=== PATIENT | female | born 1935 | race Caucasian/White ===

== ENCOUNTER 2019-05-30 08:52 | Emergency (ER) | payer MEDICARE, BC, MEDICAID ==
--- NOTE | 2019-05-30 09:10 | EDM.PDOC ---
ED HPI GENERAL MEDICAL PROBLEM - General Chief Complaint: Neuro Symptoms/Deficits Stated Complaint: [facility] Time Seen by Provider: 05/30/19 08:57 Source of Information: Reports: EMS, Skilled Nursing Records. Denies: Patient History Limitations: Reports: Altered Mental Status (She does not wish to communicate much with me. 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 Does obey commands.) - History of Present Illness INITIAL COMMENTS - FREE TEXT/NARRATIVE: 83-year-old female presents to the ED from [facility] where apparently she suffered a syncopal episode while seated in the shower this morning. Ct Technician would comment that there was any seizure-like activity as she is at high risk of seizures since she has had previous CVA. She has not yet had breakfast. Is unclear if she is diabetic. Humped over to 1 side but did not fall and hurt her head neck or any other body parts. Staff was in attendance. Since then she has been moaning and groaning a lot but not speaking a great deal. She has had a previous CVA with a complete right-sided hemiparesis. Is around in a wheelchair but does not walk to my knowledge. He denies headache at this time and there is been no history of nausea or vomiting. Patient has a history of coronary disease with stents. Is unclear if she is ever suffered a seizure event. She is on Coumadin at this time. After speaking with staff at [facility] it appears that she was wheeling herself down the hallway to the shower at just before 0730 hrs. this morning. Therefore we are using her last known well time at 0730 hrs. He is on Coumadin. She would also be a candidate for thrombolytic therapy if her INR was less than 1.7. Onset: Today Onset Date: 05/30/19 Onset Time: 08:05 Duration: Minutes: Location: Reports: Generalized (Loss of consciousness without any reported tonic -clonic or seizure activity. En route clear for how long she was unresponsive for. She slumped over to 1 side while seated in the shower. She did not fall or get hurt in any other way.) Quality: Reports: Other (Sudden loss of consciousness. This occurred while seated suggesting neurogenic or cardiac event) Severity: Moderate Improves with: Reports: Other (Fairly improved spontaneously but over what timeframe is unclear) Worsens with: Reports: None Context: Reports: Other (Apparently had a syncopal event without seizure activity while in the shower this morning slumping over to 1 side and becoming unresponsive for an unknown period of time at this time. Mental cognition and movement returned spontaneously without any postictal symptoms.). Denies: Activity, Exercise, Lifting, Sick Contact, Trauma Associated Symptoms: Reports: Confusion, Malaise. 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 (see below) (She has not received any medications.) - Related Data Allergies Allergy/AdvReac Type Severity Reaction Status Date / Time No Known Allergies Allergy Verified 06/06/15 16:32 Home Meds: Home Meds Aspirin [Ecotrin] 81 mg PO DAILY 03/28/16 [History] Sertraline [Zoloft] 75 mg PO DAILY 03/28/16 [History] Docusate Sodium [Colace] 100 mg PO BID 05/30/19 [History] Magnesium Hydroxide [Milk of Magnesia] 30 ml PO TID 05/30/19 [History] Pantoprazole [ProTONIX] 40 mg PO DAILY 05/30/19 [History] amLODIPine [Norvasc] 5 mg PO DAILY 05/30/19 [History] atorvaSTATin [Lipitor] 10 mg PO DAILY 05/30/19 [History] levETIRAcetam [Keppra] 125 mg PO BID 05/30/19 [History] risperiDONE 0.5 mg PO BID 05/30/19 [History] Past Medical History Cardiovascular History: Reports: Stents Respiratory History: Reports: None Gastrointestinal History: Reports: None Genitourinary History: Reports: None 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 Endocrine/Metabolic History: Reports: None Other Hematologic History: unable to access. Other Immunologic History: unable to access. Oncologic (Cancer) History: Reports: None Dermatologic History: Reports: None - Infectious Disease History Infectious Disease History: Reports: None Other Infectious Disease History: unable to access. - Past Surgical History Other HEENT Surgeries/Procedures: unable to assess Other Cardiovascular Surgeries/Procedures: unable to access. Other Respiratory Surgeries/Procedures: unable to access. Other GI Surgeries/Procedures: unable to access. Female Surgical History: Reports: None Other Female Surgeries/Procedures: unable to assess. Other Endocrine Surgeries/Procedures: unable to access. Other Neurological Surgeries/Procedures: unable to access. Other Musculoskeletal Surgeries/Procedures:: unable to access. Pt fell May 2015, hospitalized in [place] for 1 1/2 weeks then went to the [facility] home Other Oncologic Surgeries/Procedures: unable to access. Social & Family History - Family History Family Medical History: Noncontributory - Caffeine Use Caffeine Use: Reports: Coffee - Living Situation & Occupation Living situation: Reports: , Extended Care Facility Occupation: Retired ED ROS GENERAL - Review of Systems Review Of Systems: Unable To Obtain (Patient was not verbal with me at all although she did open her eyes make eye contact and did not respond to commands. ) Reason Not Obtained: Initially patient was nonverbal with me but was with nurses and t Constitutional: Reports: Malaise, Weakness. Denies: Fever, Chills HEENT: Reports: Glasses Respiratory: Denies: Shortness of Breath, Wheezing, Pleuritic Chest Pain Cardiovascular: Reports: Blood Pressure Problem. Denies: Chest Pain, Claudication (And runs very low. In fact nurses are having a hard time getting a blood pressure.), Lightheadedness, Orthopnea Endocrine: Reports: Fatigue GI/Abdominal: Reports: Constipation : Reports: Incontinence Musculoskeletal: Reports: Other (Pain in both her knees and hips and low back and neck at times) Skin: Reports: No Symptoms Neurological: Reports: Other (Right-sided hemiparesis from previous CVA and brain bleed.) Psychiatric: Reports: No Symptoms Hematologic/Lymphatic: Reports: No Symptoms Immunologic: Reports: No Symptoms ED EXAM, NEURO - Physical Exam Exam: See Below Exam Limited By: Altered Mental Status General Appearance: Lethargic, Mild Distress, Other (However she has a strong radial pulse indicating that her systolic is greater than 90.) Eye Exam: Bilateral Eye: Normal Inspection (There is no scleral icterus or blepharal pallor.) Throat/Mouth: Normal Lips, Normal Teeth, Other (Tongue is mildly dry.) Head Exam: Atraumatic, Normocephalic, Other (No outward signs of any head or facial trauma.) Neck: Normal Inspection, Other (Obvious tenderness on palpation of the lateral spine.). No: Supple, Carotid Bruit Respiratory/Chest: Respiratory Distress, Decreased Breath Sounds (Shallow respirations.). No: Lungs Clear ( Is diminished to the lower 50% lung benedict bilaterally.), Normal Breath Sounds Cardiovascular: Regular Rate, Rhythm, No Edema (Frequent ectopic beats.), No Gallop, No Murmur, No Rub. No: Normal Peripheral Pulses GI/Abdominal: Normal Bowel Sounds, Soft, Non-Tender, No Organomegaly, No Abnormal Bruit, No Mass, Pelvis Stable, Distended (Pineda distended and tympany to percussion upper abdomen suggestive of some aerophagia.) Neurological: CN II-XII Intact, Babinski (Going on the right side.), Other (He can lift her right leg off the gurney just for a second or 2. She could lift her left leg off the gurney for 3 seconds and that was all. She has good import/export administrator strength and good motor power and tone in the biceps distribution and or flexor strength on the left side. On the right side she is very weak with very little import/export administrator strength. ). No: Oriented x 3 DTR: 0: Achilles (R), Achilles (L), 1+: Patella (R), Patella (L), 2+: Bicep (R) , Bicep (L) Back Exam: Other (Mild kyphosis thoracic spine) Extremities: Non-Tender, Other (Evidence of osteoarthritic changes both knees very limited internal and external rotation of both hips suggestive of osteoarthritic change.). No: Normal Range of Motion, Normal Capillary Refill Psychiatric: Other Skin Exam: Warm (Not able to assess as the patient really did not speak with me. ), Dry, Intact, Normal Color, No Rash EKG INTERPRETATION EKG Date: 05/30/19 Time: 09:19 Rhythm: NSR Rate (Beats/Min): 70 [place]: LAD-Left [place] Deviation (67 degrees) P-Wave: Present QRS: LBBB (Left anterior fascicular block pattern) ST-T: Other (Delayed R wave progression with late transition. T wave flattening V2 and V3 nonspecific finding) EKG Interpretation Comments: Abnormal ECG Course - Vital Signs Last Recorded V/S: Last Vital Signs Temp 36.4 C 03/18/20 09:00 Pulse 65 05/30/19 09:00 Resp 16 05/30/19 09:00 BP Pulse Ox 85 L 05/30/19 09:00 - Orders/Labs/Meds Orders: Active Orders 24 hr Category Date Time Status Blood Glucose Check, Bedside [] ONETIME Care 05/30/19 09:09 Active EKG Documentation Completion [RC] STAT Care 05/30/19 09:08 Active Oxygen Therapy [RC] ASDIRECTED Care 05/30/19 09:09 Active URINALYSIS W/MICROSCOPIC [UA W/MICROSCOPIC] [URIN] Stat Lab 05/30/19 09:09 Ordered Dextrose 5%-0.9% NaCl [Dextrose 5%-Normal Saline] 1,000 Med 05/30/19 09:15 Active ml IV ASDIRECTED Medication Orders Dextrose/Sodium Chloride (Dextrose 5%-Normal Saline) 1,000 mls @ 999 mls/hr IV ASDIRECTED FIORELLA Last Admin: 05/30/19 10:22 Dose: 999 mls/hr Labs: Laboratory Tests 05/30/19 05/30/19 05/30/19 Range/Units 09:06 09:15 09:15 WBC 9.29 (3.98-10.04) K/mm3 RBC 3.88 L (3.98-5.22) M/mm3 Hgb 10.1 L D (11.2-15.7) gm/dl Hct 34.4 (34.1-44.9) % MCV 88.7 D (79.4-94.8) fl MCH 26.0 (25.6-32.2) pg MCHC 29.4 L (32.2-35.5) g/dl RDW Std Deviation 53.6 H (36.4-46.3) fL Plt Count 261 (182-369) K/mm3 MPV 11.9 (9.4-12.3) fl Neut % (Auto) 67.2 (34.0-71.1) % Lymph % (Auto) 18.5 L (19.3-51.7) % Lynn % (Auto) 8.6 (4.7-12.5) % Eos % (Auto) 5.2 (0.7-5.8) Baso % (Auto) 0.3 (0.1-1.2) % Neut # (Auto) 6.24 H (1.56-6.13) K/mm3 Lymph # (Auto) 1.72 (1.18-3.74) K/mm3 Lynn # (Auto) 0.80 H (0.24-0.36) K/mm3 Eos # (Auto) 0.48 H (0.04-0.36) K/mm3 Baso # (Auto) 0.03 (0.01-0.08) K/mm3 Manual Slide Review Abnormal smear PT 10.3 (9.7-12.0) SECONDS INR 0.94 APTT 22 (22-31) SECONDS Sodium (136-145) mEq/L Potassium (3.5-5.1) mEq/L Chloride (98-107) mEq/L Carbon Dioxide (21-32) mEq/L Anion Gap (5-15) BUN (7-18) mg/dL Creatinine (0.55-1.02) mg/dL Est Cr Clr Drug Dosing mL/min Estimated GFR (MDRD) (>60) mL/min BUN/Creatinine Ratio (14-18) Glucose (83-115) mg/dL POC Glucose 94 (83-110) mg/dL Calcium (8.5-10.1) mg/dL Magnesium (1.8-2.4) mg/dl Total Bilirubin (0.2-1.0) mg/dL AST (15-37) U/L ALT (14-59) U/L Alkaline Phosphatase (46-116) U/L CK-MB (CK-2) (0-3.6) ng/ml Troponin I (0.00-0.056) ng/mL NT-Pro-B Natriuret Pep (0-450) pg/mL Total Protein (6.4-8.2) g/dl Albumin (3.4-5.0) g/dl Globulin gm/dL Albumin/Globulin Ratio (1-2) 05/30/19 05/30/19 Range/Units 09:15 09:15 WBC (3.98-10.04) K/mm3 RBC (3.98-5.22) M/mm3 Hgb (11.2-15.7) gm/dl Hct (34.1-44.9) % MCV (79.4-94.8) fl MCH (25.6-32.2) pg MCHC (32.2-35.5) g/dl RDW Std Deviation (36.4-46.3) fL Plt Count (182-369) K/mm3 MPV (9.4-12.3) fl Neut % (Auto) (34.0-71.1) % Lymph % (Auto) (19.3-51.7) % Lynn % (Auto) (4.7-12.5) % Eos % (Auto) (0.7-5.8) Baso % (Auto) (0.1-1.2) % Neut # (Auto) (1.56-6.13) K/mm3 Lymph # (Auto) (1.18-3.74) K/mm3 Lynn # (Auto) (0.24-0.36) K/mm3 Eos # (Auto) (0.04-0.36) K/mm3 Baso # (Auto) (0.01-0.08) K/mm3 Manual Slide Review PT (9.7-12.0) SECONDS INR APTT (22-31) SECONDS Sodium 143 (136-145) mEq/L Potassium 4.8 (3.5-5.1) mEq/L Chloride 107 (98-107) mEq/L Carbon Dioxide 29 (21-32) mEq/L Anion Gap 11.8 (5-15) BUN 15 (7-18) mg/dL Creatinine 0.9 (0.55-1.02) mg/dL Est Cr Clr Drug Dosing 43.56 mL/min Estimated GFR (MDRD) 60 (>60) mL/min BUN/Creatinine Ratio 16.7 (14-18) Glucose 103 (83-115) mg/dL POC Glucose (83-110) mg/dL Calcium 8.8 (8.5-10.1) mg/dL Magnesium 2.2 (1.8-2.4) mg/dl Total Bilirubin 0.2 (0.2-1.0) mg/dL AST 15 (15-37) U/L ALT 12 L (14-59) U/L Alkaline Phosphatase 77 (46-116) U/L CK-MB (CK-2) 0.5 (0-3.6) ng/ml Troponin I < 0.017 (0.00-0.056) ng/mL NT-Pro-B Natriuret Pep 92 (0-450) pg/mL Total Protein 7.4 (6.4-8.2) g/dl Albumin 3.1 L (3.4-5.0) g/dl Globulin 4.3 gm/dL Albumin/Globulin Ratio 0.7 L (1-2) Meds: Medications Generic Name Dose Route Start Last Admin Trade Name Freq PRN Reason Stop Dose Admin Dextrose/Sodium Chloride 1,000 mls @ 999 mls/hr 05/30/19 09:15 05/30/19 10:22 Dextrose 5%-Normal Saline IV 999 mls/hr ASDIRECTED FIORELLA Administration - Radiology Interpretation Free Text/Narrative:: 3-year-old female presents to the ED from [facility] as a stroke alert. Apparently she was in the shower this morning seated and then had a spell where she lost consciousness with her head leaning to one side against the shower side. She did not fall and there was no significant injuries to the head or neck or body parts. Staff was in attendance. There is no report of any seizure-like activity. She has had a previous CVA over a year and a half ago with right-sided hemiparesis. She does not walk on her own volition. When I seen her she is nonverbal although apparently she did communicate with the paramedics in route as well as nursing initially. She did obey commands by opening her mouth showing me her tongue and import/export administrator strengths and movement of her upper extremities. Granddaughter has arrived now and indicates that her speech is not normally this garbled suggesting that she has had a second CVA. Is unclear exactly when the symptoms may have occurred. CT head will be ordered. Of note the patient is on Coumadin. - Re-Assessments/Exams Free Text/Narrative Re-Assessment/Exam: 05/30/19 10:15: CT of the brain reveals ventricles along with the basal cisterns and sulci over the convexities to be utterly prominent. Several lacunar infarcts which appear old are seen within both basal ganglia. Small old white matter infarct is also noted on the right side. Small old infarct is also noted within the left side of the guille. No other abnormal parenchymal densities are identified. No evidence of intracranial hemorrhage. No midline shift or mass-effect is seen. Bone window settings are were reviewed which show no acute paranasal sinus findings. Straight done portably reveals slight atelectasis within the left lung base but lungs are otherwise clear. Heart size and mediastinum are within normal limits for the patient's age. Bone structures of course are very osteopenic. 05/30/19 10:32 Count is 9.29 with 67% neutrophils on the auto differential. Hemoglobin is slightly low at 10.1 with hematocrit of 34.4. Platelet count is 261,000. The slide shows slight hypochromia. PT is 10.3 with an INR of 0.94 and PTT is pending. Shows a sodium of 143 potassium of 4.8 chloride 107 with a bicarb of 29. Anion gap is 11.8 BUN is 15. Creatinine is 0.9 GFR is greater than 60. Glucose 103 with a bedside glucose of 94. Calcium was 8.8 with a magnesium of 2.2. Liver function is normal CK-MB is 0.5 with a troponin I of less than 0.017. BNP is 92 total protein is 7.4 albumin fraction 3.1. 05/30/19 11:40 declining further information from the [facility] and they indicate that they did not see any evidence of seizure-like activity. They did indicate that it seemed to take a while for her to come around suggesting the possibility of a complex partial seizure. However when I spoke with the granddaughter she indicated that her speech is unchanged now and the patient agrees that her speech is unchanged from her usual as well as the weakness in her right upper extremity. The staff at the [facility] said there was a definite change when they seen her with inability to comprehend speech and to speak. 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 However the grand daughter that I spoke with states that they did not want her back on any anticoagulants as she had a major brain bleed 4 years ago while on medication. Therefore the treatment will remain the same baby aspirin daily. Just going to check that she can swallow adequately before we decide to let her go back to the [facility] 05/30/19 11:42 Nurses report she had absolutely no trouble swallowing water. She will therefore be returned to [facility] with no changes made to her medications at this point in time. This discussed with her granddaughter whom is in attendance. She has understanding that there is a higher risk of TIA in the future. However patient and family members do not want her on any medications that may make her bleed easier since she has had a previous brain bleed while on Plavix. For stay on her baby aspirin daily Departure - Departure Time of Disposition: 11:43 Disposition: DC/Tfer to Assisted Care [facility] Condition: Fair Clinical Impression: TIA (transient ischemic attack) - Discharge Information *PRESCRIPTION DRUG MONITORING PROGRAM REVIEWED*: Not Applicable *COPY OF PRESCRIPTION DRUG MONITORING REPORT IN PATIENT JIGAR: Not Applicable Instructions: Transient Ischemic Attack, [id number] Referrals: Cisco Scott MD [Primary Care Provider] - Forms: ED Department Discharge Additional Instructions: Evaluation in the emergency room today in regards to a loss of consciousness spell that occurred while seated over at [facility]. The information that we received indicated that you suddenly lost consciousness and tilted over to the side without any fall from the shower chair. It is unclear how long this unresponsive spell lasted. When you came around it was appreciated that your speech seem to be definitely altered being very dysarthric and initially not able to answer at all. It is impossible to tell if there was increased weakness on the side as you have had previous stroke on that side. When she reached the ED your speech as you felt was as normal as it usually is and your granddaughter felt initially that perhaps it was a little weaker and altered but over time came back to normal. Alert was called and CT scan of the brain was carried out showing no intracranial bleeding or mass- effect or evidence of a new stroke. There was no signs of any heart abnormalities or arrhythmias that would account for sudden drop in blood pressure. Pressure runs quite low however and sometimes as we get older we can see a sudden drop in blood pressure due to change in blood pressure due to opening and closing of the blood vessels. At any rate it was felt that you may well have suffered another small stroke or transient ischemic attack. At this time we do not recommend any changes in treatment other than the medications you are already taking. There is a higher risk for recurrent similar type event. You are also at risk of atypical seizure disorder due to previous stroke and therefore it is very important that if any further spells occur that you are observed closely by staff members to make sure that there is no seizure- like activity which of course there is a treatment for. Sepsis Event Note - Focused Exam Vital Signs: Vital Signs Temp Pulse Resp Pulse Ox 05/30/19 09:00 36.4 C 65 16 85 L Date Exam was Performed: 05/30/19 Time Exam was Performed: 14:00 - My Orders Last 24 Hours: My Active Orders 05/30/19 09:08 EKG Documentation Completion [RC] STAT 05/30/19 09:09 Blood Glucose Check, Bedside [RC] ONETIME Oxygen Therapy [RC] ASDIRECTED URINALYSIS W/MICROSCOPIC [UA W/MICROSCOPIC] [URIN] Stat 05/30/19 09:15 Dextrose 5%-0.9% NaCl [Dextrose 5%-Normal Saline] 1,000 ml IV ASDIRECTED - Assessment/Plan Last 24 Hours: My Active Orders 05/30/19 09:08 EKG Documentation Completion [RC] STAT 05/30/19 09:09 Blood Glucose Check, Bedside [RC] ONETIME Oxygen Therapy [RC] ASDIRECTED URINALYSIS W/MICROSCOPIC [UA W/MICROSCOPIC] [URIN] Stat 05/30/19 09:15 Dextrose 5%-0.9% NaCl [Dextrose 5%-Normal Saline] 1,000 ml IV ASDIRECTED
[2019-05-30 09:11] VITALS: PULSE 65
[2019-05-30] MEDS ORDERED: Dextrose 5%-0.9% NaCl 1,000 ML IV SCH (09:15)
--- NOTE | 2019-05-30 09:59 | CR ---
Chest: Portable view of the chest was obtained. Comparison: Prior chest x-ray of 03/28/16. Slight atelectasis is seen within the left lung base. Lungs otherwise are clear. Heart size and mediastinum are within normal limits for the patient's age. Bony structures are osteopenic. Impression: 1. Slight atelectasis within the left lung base. 2. Nothing acute is otherwise seen on portable chest x-ray. Diagnostic code #2 This report was dictated in MDT
--- NOTE | 2019-05-30 10:12 | CT ---
Head CT Technique: Multiple axial sections through the brain were obtained. Intravenous contrast was not utilized. Comparison: Previous head CT study of 05/10/16. Findings: Ventricles along with basal cisterns and sulci over the convexities are moderately prominent. Several lacunar infarcts which appear old are seen within the basal ganglia. Small old white matter infarct is also noted on the right side. Small old infarct is noted within the left side of the guille No other abnormal parenchymal densities are seen. No evidence of intracranial hemorrhage. No midline shift or mass effect is seen. Bone window settings were reviewed which show no acute paranasal sinus findings within the visualized sinuses. Mastoid sinuses are clear. No acute calvarial abnormality is seen. Mild atherosclerotic change is seen within the carotid siphon. Impression: 1. Senescent change as noted above. 2. No acute intracranial abnormality is identified. Diagnostic code #2 This report was dictated in MDT
== END 2019-05-30 13:15 ==
LOC: JD.ED 08:52
DX: G45.9 Transient cerebral ischemic attack, unspecified (principal); F32.9 Major depressive disorder, single episode, unspecified; Z79.82 Long term (current) use of aspirin; Z79.899 Other long term (current) drug therapy; R06.02 Shortness of breath
CPT/HCPCS: 36415; 70450; 71045; 80053; 82553; 82962; 83735; 83880; 84484; 85025; 85610; 85730; 93005; 96360; 99285; J7042; 93010

== ENCOUNTER 2019-10-09 14:12 | Emergency (ER) | payer MEDICARE, BC, MEDICAID, OTHER ==
[2019-10-09 14:34] VITALS: BP 127/69; PULSE 78
--- NOTE | 2019-10-09 15:07 | EDM.PDOC ---
ED HPI GENERAL MEDICAL PROBLEM - General Chief Complaint: Respiratory Problem Stated Complaint: [facility] Time Seen by Provider: 10/09/19 14:32 Source of Information: Reports: EMS Notes Reviewed (with NH report), RN Notes Reviewed History Limitations: Reports: Altered Mental Status (unsure if patient has dementia, but all she does when I look at her or try to ask question is laugh) - History of Present Illness INITIAL COMMENTS - FREE TEXT/NARRATIVE: Patient is an 84-year-old female who presents to the ED via [facility], from [facility] for a possible COVID-19 exposure. Per report from [facility] staff, the patient was exposed to a staff member with COVID-19 on October 05. Staff states that the patient started complaining of a sore throat on October 06, and they have noted that she has started to have low O2 sats today, at time of triage they are 85% on room air, she is not known to had any fever, they deny cough, however when I am examining her, she does have a dry intermittent cough. Patient appears to be in a mild respiratory distress pattern, she is belly breathing, and is eliciting upper airway wheezing due to forceful expiration. Patient does wear oxygen at the [facility] at around 2 L nasal cannula, we did apply this at initial exam, and her O2 sats are 95 to 98% with the 2 L. Patient does not provide much for history, when I ask her questions, or if she looks at me, all she does is laugh at me. - Related Data Allergies Allergy/AdvReac Type Severity Reaction Status Date / Time No Known Allergies Allergy Verified 10/09/19 14:34 Home Meds: Home Meds Aspirin [Ecotrin] 81 mg PO DAILY 03/28/16 [History] Sertraline [Zoloft] 75 mg PO DAILY 03/28/16 [History] Docusate Sodium [Colace] 100 mg PO BID 05/30/19 [History] Magnesium Hydroxide [Milk of Magnesia] 30 ml PO TID 05/30/19 [History] Pantoprazole [ProTONIX] 40 mg PO DAILY 05/30/19 [History] amLODIPine [Norvasc] 5 mg PO DAILY 05/30/19 [History] atorvaSTATin [Lipitor] 10 mg PO DAILY 05/30/19 [History] levETIRAcetam [Keppra] 125 mg PO BID 05/30/19 [History] risperiDONE 0.5 mg PO BID 05/30/19 [History] Past Medical History HEENT History: Reports: Impaired Vision Cardiovascular History: Reports: Stents Respiratory History: Reports: None Gastrointestinal History: Reports: None Genitourinary History: Reports: None 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 Endocrine/Metabolic History: Reports: None Other Hematologic History: unable to access. Other Immunologic History: unable to access. Oncologic (Cancer) History: Reports: None Dermatologic History: Reports: None - Infectious Disease History Infectious Disease History: Reports: None Other Infectious Disease History: unable to access. - Past Surgical History Other HEENT Surgeries/Procedures: unable to assess Other Cardiovascular Surgeries/Procedures: unable to access. Other Respiratory Surgeries/Procedures: unable to access. Other GI Surgeries/Procedures: unable to access. Female Surgical History: Reports: None Other Female Surgeries/Procedures: unable to assess. Other Endocrine Surgeries/Procedures: unable to access. Other Neurological Surgeries/Procedures: unable to access. Other Musculoskeletal Surgeries/Procedures:: unable to access. Pt fell May 2015, hospitalized in [place] for 1 1/2 weeks then went to the [facility] home Other Oncologic Surgeries/Procedures: unable to access. Social & Family History - Family History Family Medical History: Noncontributory - Tobacco Use Smoking Status *Q: Former Smoker Used Tobacco, but Quit: Yes Month/Year Tobacco Last Used: "long time ago" - Caffeine Use Caffeine Use: Reports: Coffee - Living Situation & Occupation Living situation: Reports: , Extended Care Facility Occupation: Retired ED ROS GENERAL - Review of Systems Review Of Systems: See Below Constitutional: Denies: Fever HEENT: Denies: Throat Pain Respiratory: Reports: Wheezing (forced expiratory wheezing), Cough (dry, intermittent). Denies: Shortness of Breath Cardiovascular: Denies: Chest Pain GI/Abdominal: Denies: Abdominal Pain, Diarrhea, Nausea, Vomiting ED EXAM, GENERAL - Physical Exam Exam: See Below Exam Limited By: Altered Mental Status (hx/ of dementia with behavioral disturbance, follows commands, but does just giggle at most everything I request.) General Appearance: Alert, WD/WN, Mild Distress (pt does have forced expiratory wheezing with belly breathing) Eye Exam: Bilateral Eye: EOMI, Normal Inspection, PERRL Throat/Mouth: Normal Inspection, Normal Lips, Normal Teeth, Normal Gums, Normal Oropharynx, Normal Voice, No Airway Compromise Head: Atraumatic, Normocephalic Neck: Normal Inspection Respiratory/Chest: Chest Non-Tender, Decreased Breath Sounds (bilaterally), Rales (mostly in bilateral bases), Wheezing (forced expiratory upper airway wheezing), Splinting (pt does exhibit prolonged expiratory with abdmonial splinting) Cardiovascular: Normal Peripheral Pulses, Regular Rate, Rhythm, No Murmur Extremities: Normal Inspection, Normal Capillary Refill Neurological: Alert Psychiatric: Normal Affect, Normal Mood Skin Exam: Warm, Dry, Intact, Normal Color, No Rash Course - Vital Signs Last Recorded V/S: Last Vital Signs Temp 97.5 F 10/09/19 14:28 Pulse 78 10/09/19 14:28 Resp 16 10/09/19 14:28 BP 127/69 10/09/19 14:28 Pulse Ox 85 L 10/09/19 14:28 - Orders/Labs/Meds Orders: Active Orders 24 hr Category Date Time Status CORONAVIRUS COVID-19 PCR PHL Routine Lab 10/09/19 14:40 Ordered Labs: Laboratory Tests 10/09/19 10/09/19 10/09/19 Range/Units 15:04 15:04 15:04 WBC 7.19 (3.98-10.04) K/mm3 RBC 3.91 L (3.98-5.22) M/mm3 Hgb 9.5 L (11.2-15.7) gm/dl Hct 32.9 L (34.1-44.9) % MCV 84.1 D (79.4-94.8) fl MCH 24.3 L (25.6-32.2) pg MCHC 28.9 L (32.2-35.5) g/dl RDW Std Deviation 55.8 H (36.4-46.3) fL Plt Count 250 (182-369) K/mm3 MPV 12.1 (9.4-12.3) fl Neut % (Auto) 56.6 (34.0-71.1) % Lymph % (Auto) 26.8 (19.3-51.7) % Bradley % (Auto) 10.2 (4.7-12.5) % Eos % (Auto) 6.0 H (0.7-5.8) Baso % (Auto) 0.3 (0.1-1.2) % Neut # (Auto) 4.07 (1.56-6.13) K/mm3 Lymph # (Auto) 1.93 (1.18-3.74) K/mm3 Bradley # (Auto) 0.73 H (0.24-0.36) K/mm3 Eos # (Auto) 0.43 H (0.04-0.36) K/mm3 Baso # (Auto) 0.02 (0.01-0.08) K/mm3 Manual Slide Review Abnormal smear Sodium 140 (136-145) mEq/L Potassium 4.0 (3.5-5.1) mEq/L Chloride 104 (98-107) mEq/L Carbon Dioxide 29 (21-32) mEq/L Anion Gap 11.0 (5-15) BUN 12 (7-18) mg/dL Creatinine 0.9 (0.55-1.02) mg/dL Est Cr Clr Drug Dosing 36.14 mL/min Estimated GFR (MDRD) 60 (>60) mL/min BUN/Creatinine Ratio 13.3 L (14-18) Glucose 108 (83-115) mg/dL Calcium 8.1 L (8.5-10.1) mg/dL Ferritin 12 (8-252) ng/ml Total Bilirubin 0.2 (0.2-1.0) mg/dL AST 13 L (15-37) U/L ALT 14 (14-59) U/L Alkaline Phosphatase 76 (46-116) U/L C-Reactive Protein 0.6 (<1.0) mg/dL Total Protein 6.9 (6.4-8.2) g/dl Albumin 2.9 L (3.4-5.0) g/dl Globulin 4.0 gm/dL Albumin/Globulin Ratio 0.7 L (1-2) - Re-Assessments/Exams Free Text/Narrative Re-Assessment/Exam: 10/09/19 15:13 Patient presents to the ED from the [facility] for the evaluation of her possible COVID exposure, and low O2 sats. On initial exam, patient is exhibiting some slight respiratory distress with abdominal splinting, prolonged expiratory phase with expiratory wheezing in the upper airways. I did contact the return to [facility] for prior history they state that she does have a history of dementia with behavioral disturbances, so they state that she will likely just stare at you and then giggle. Nursing staff noted that she was slightly more pale than she normally is earlier today, and O2 sats were 84 to 86% on room air, they did place O2 at 2 L, got up to about 94%, and nursing staff states that she complained of a sore throat on the , and then she was complaining about being lightheaded/dizzy today. 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 Nursing staff states that the perceived respiratory distress is somewhat new, and she also did appreciate some coarse lung sounds at the [facility] earlier today. 10/09/19 16:08 Chest x-ray shows no sign of a viral pneumonia or other COVID-19 type pattern. The patient CBC CMP and CRP are essentially unremarkable. Ferritin is still pending at this time. Patient does have oxygen at the [facility], we will likely have the patient go back to the [facility], and isolate until the state coronavirus test can be resulted. 10/09/19 16:37 Ferritin is also within normal limits. We will discharge home with general recommendations, and have them quarantine her until the COVID results can come back from the state. Departure - Departure Time of Disposition: 16:38 Disposition: Home, Self-Care 01 Condition: Good Clinical Impression: Hypoxia, Viral URI with cough - Discharge Information *PRESCRIPTION DRUG MONITORING PROGRAM REVIEWED*: No *COPY OF PRESCRIPTION DRUG MONITORING REPORT IN PATIENT JIGAR: No Instructions: Viral Respiratory Infection, Ivkg-Ur-Wday Forms: ED Department Discharge Additional Instructions: You were evaluated in the ER today regarding your low oxygen levels, and upper respiratory symptoms. Work-up in the ER today consisted of basic labs, chest x-ray and a state lab COVID screen. Laboratory evaluation demonstrated no focal abnormalities, your hemoglobin was mildly low, but this is not uncommon for you and it is not at a level that you would need a blood transfusion at this time. Chest x-ray was not concerning for pneumonia or COVID-19 at this time. You did have a COVID-19 swab taken, this will be sent to the state for evaluation, this can take up to 3-5 business days to result, you will be called and made notified of the results as we get them, regardless if they are positive or negative. As you live in a [facility], you should self quarantine until you get these results. You may use oxygen as needed for lower oxygen levels as needed, as previously prescribed by your primary care provider. Please return to the ER at any time however if your symptoms should change or worsen. Sepsis Event Note (ED) - Evaluation Sepsis Screening Result: No Definite Risk - Focused Exam Vital Signs: Vital Signs Temp Pulse Resp BP Pulse Ox 10/09/19 14:28 97.5 F 78 16 127/69 85 L - My Orders Last 24 Hours: My Active Orders 10/09/19 14:40 CORONAVIRUS COVID-19 PCR PHL Routine - Assessment/Plan Last 24 Hours: My Active Orders 10/09/19 14:40 CORONAVIRUS COVID-19 PCR PHL Routine
--- NOTE | 2019-10-09 15:40 | CR ---
Chest: 2 views of the chest were obtained. Comparison: Prior chest x-ray of 05/30/19. Heart is slightly enlarged. Tortuous thoracic aorta is seen. Lungs are clear with no acute parenchymal change. Bony structures are osteopenic. Old healed distal left humeral fracture is noted. Scattered compression deformities are noted within the spine which are most likely old. Slight scoliosis is seen. Impression: 1. Findings as noted above. 2. Nothing acute is appreciated on 2 view chest x-ray. Diagnostic code #2 This report was dictated in MDT
== END 2019-10-09 17:55 | disposition home or self-care (01) ==
LOC: JD.ED 14:12
DX: J06.9 Acute upper respiratory infection, unspecified (principal); R09.02 Hypoxemia; F32.9 Major depressive disorder, single episode, unspecified; Z79.82 Long term (current) use of aspirin; Z79.899 Other long term (current) drug therapy; Z87.891 Personal history of nicotine dependence; Z20.828 Contact with and (suspected) exposure to other viral communicable diseases
CPT/HCPCS: 36415; 71046; 80053; 82728; 85025; 86140; 99285; U0002; 99282

== ENCOUNTER 2019-10-30 11:06 | Inpatient (IN) | payer MEDICARE, BC, MEDICAID ==
[2019-10-30] MEDS ORDERED: Sodium Chloride 0.9% 10 ML Syringe FLUSH PRN (11:50)
[2019-10-30] MEDS ORDERED: Ondansetron 4 MG/2 ML SDV IVPUSH ONE (11:50)
[2019-10-30] MEDS ORDERED: Sodium Chloride 0.9% 1,000 ML IV SCH (12:00)
--- NOTE | 2019-10-30 12:37 | EDM.PDOC ---
ED HPI GENERAL MEDICAL PROBLEM - General Chief Complaint: General Stated Complaint: SENT FROM [place] Time Seen by Provider: 10/30/19 11:12 Source of Information: Reports: Patient, Provider History Limitations: Reports: No Limitations - History of Present Illness INITIAL COMMENTS - FREE TEXT/NARRATIVE: The patient presents from Dr Scott's office for decreased appetite and r ectal bleeding. She is a resident of the [facility]. She was sent to Dr Scott's office for evaluation. Her Hgb did drop from 10.2 yesterday to 9 today. She is on a baby aspirin but no other blood thinners. She denies any pain such as headache, chest pain or abdominal pain. She is in the halfway for a CVA, head bleed and dementia. Onset: Gradual Duration: Day(s): Severity: Moderate Improves with: Reports: None Worsens with: Reports: None Associated Symptoms: Reports: No Other Symptoms - Related Data Allergies Allergy/AdvReac Type Severity Reaction Status Date / Time No Known Allergies Allergy Verified 10/30/19 11:25 Home Meds: Home Meds Aspirin [Ecotrin] 81 mg PO DAILY 03/28/16 [History] Sertraline [Zoloft] 75 mg PO DAILY 03/28/16 [History] Docusate Sodium [Colace] 100 mg PO BID 05/30/19 [History] Magnesium Hydroxide [Milk of Magnesia] 30 ml PO TID 05/30/19 [History] Pantoprazole [ProTONIX] 40 mg PO DAILY 05/30/19 [History] amLODIPine [Norvasc] 5 mg PO DAILY 05/30/19 [History] atorvaSTATin [Lipitor] 10 mg PO DAILY 05/30/19 [History] levETIRAcetam [Keppra] 125 mg PO BID 05/30/19 [History] risperiDONE 0.5 mg PO BID 05/30/19 [History] Past Medical History HEENT History: Reports: Impaired Vision Cardiovascular History: Reports: Stents Respiratory History: Reports: None Gastrointestinal History: Reports: None Genitourinary History: Reports: None 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 Endocrine/Metabolic History: Reports: None Other Hematologic History: unable to access. Other Immunologic History: unable to access. Oncologic (Cancer) History: Reports: None Dermatologic History: Reports: None - Infectious Disease History Infectious Disease History: Reports: None Other Infectious Disease History: unable to access. - Past Surgical History Other HEENT Surgeries/Procedures: unable to assess Other Cardiovascular Surgeries/Procedures: unable to access. Other Respiratory Surgeries/Procedures: unable to access. Other GI Surgeries/Procedures: unable to access. Female Surgical History: Reports: None Other Female Surgeries/Procedures: unable to assess. Other Endocrine Surgeries/Procedures: unable to access. Other Neurological Surgeries/Procedures: unable to access. Other Musculoskeletal Surgeries/Procedures:: unable to access. Pt fell May 2015, hospitalized in [place] for 1 1/2 weeks then went to the [facility] home Other Oncologic Surgeries/Procedures: unable to access. Social & Family History - Family History Family Medical History: Noncontributory - Tobacco Use Smoking Status *Q: Never Smoker Second Hand Smoke Exposure: No - Caffeine Use Caffeine Use: Reports: None - Recreational Drug Use Recreational Drug Use: No - Living Situation & Occupation Living situation: Reports: , Extended Care Facility Occupation: Retired ED ROS GENERAL - Review of Systems Review Of Systems: See Below Constitutional: Reports: No Symptoms HEENT: Reports: No Symptoms Respiratory: Reports: No Symptoms Cardiovascular: Reports: No Symptoms Endocrine: Reports: No Symptoms GI/Abdominal: Reports: Bloody Stool. Denies: Abdominal Pain, Nausea, Vomiting : Reports: No Symptoms Musculoskeletal: Reports: No Symptoms ED EXAM, GENERAL - Physical Exam Exam: See Below Exam Limited By: No Limitations General Appearance: Alert, No Apparent Distress Ears: Normal External Exam Nose: Normal Inspection Head: Atraumatic, Normocephalic Neck: Normal Inspection Respiratory/Chest: No Respiratory Distress, Lungs Clear, Normal Breath Sounds Cardiovascular: Regular Rate, Rhythm, No Edema, No Murmur GI/Abdominal: Soft, Non-Tender, No Organomegaly, No Mass Rectal (Female) Exam: Bloody Stool, Heme + Stool Back Exam: Normal Inspection Neurological: Alert Course - Vital Signs Last Recorded V/S: Last Vital Signs Temp 97.6 F 10/30/19 11:21 Pulse 85 10/30/19 11:21 Resp 20 10/30/19 11:21 BP 132/107 H 10/30/19 11:21 Pulse Ox 92 L 10/30/19 11:21 - Orders/Labs/Meds Orders: Active Orders 24 hr Category Date Time Status Peripheral IV Care [RC] . DIRECTED Care 10/30/19 11:51 Active CORONAVIRUS COVID-19 RAPID [MOLEC] Stat Lab 10/30/19 14:18 Ordered Sodium Chloride 0.9% [Normal Saline] 1,000 ml Med 10/30/19 12:00 Active IV ASDIRECTED Sodium Chloride 0.9% [Normal Saline] 100 ml Med 10/30/19 13:00 Active IV ASDIRECTED Sodium Chloride 0.9% [Saline Flush] Med 10/30/19 11:50 Active 10 ml FLUSH ASDIRECTED PRN ED Antiemetic Medication Reflex [OM.PC] Stat Oth 10/30/19 11:50 Ordered Peripheral IV Insertion Adult [OM.PC] Stat Oth 10/30/19 11:50 Ordered Medication Orders Sodium Chloride (Normal Saline) 1,000 mls @ 125 mls/hr IV ASDIRECTED FIORELLA Last Admin: 10/30/19 12:10 Dose: 125 mls/hr Documented by: RAHAT Sodium Chloride (Normal Saline) 100 mls @ 60 mls/hr IV ASDIRECTED FIORELLA Last Admin: 10/30/19 13:16 Dose: 60 mls/hr Documented by: JEANNE Sodium Chloride (Saline Flush) 10 ml FLUSH ASDIRECTED PRN PRN Reason: Keep Vein Open Last Admin: 10/30/19 12:10 Dose: 10 ml Documented by: RAHAT Labs: Laboratory Tests 10/30/19 10/30/19 10/30/19 Range/Units 12:05 12:05 12:05 WBC 7.75 (3.98-10.04) K/mm3 RBC 3.69 L (3.98-5.22) M/mm3 Hgb 8.9 L (11.2-15.7) gm/dl Hct 30.8 L (34.1-44.9) % MCV 83.5 (79.4-94.8) fl MCH 24.1 L (25.6-32.2) pg MCHC 28.9 L (32.2-35.5) g/dl RDW Std Deviation 55.6 H (36.4-46.3) fL Plt Count 285 (182-369) K/mm3 MPV 11.9 (9.4-12.3) fl Neut % (Auto) 56.2 (34.0-71.1) % Lymph % (Auto) 28.6 (19.3-51.7) % [place] % (Auto) 9.5 (4.7-12.5) % Eos % (Auto) 5.2 (0.7-5.8) Baso % (Auto) 0.4 (0.1-1.2) % Neut # (Auto) 4.35 (1.56-6.13) K/mm3 Lymph # (Auto) 2.22 (1.18-3.74) K/mm3 [place] # (Auto) 0.74 H (0.24-0.36) K/mm3 Eos # (Auto) 0.40 H (0.04-0.36) K/mm3 Baso # (Auto) 0.03 (0.01-0.08) K/mm3 Manual Slide Review Abnormal smear PT 10.6 (9.7-12.0) SECONDS INR 0.99 APTT 21 L (22-31) SECONDS Sodium 138 (136-145) mEq/L Potassium 4.3 (3.5-5.1) mEq/L Chloride 101 (98-107) mEq/L Carbon Dioxide 29 (21-32) mEq/L Anion Gap 12.3 (5-15) BUN 12 (7-18) mg/dL Creatinine 0.9 (0.55-1.02) mg/dL Est Cr Clr Drug Dosing 36.97 mL/min Estimated GFR (MDRD) 60 (>60) mL/min BUN/Creatinine Ratio 13.3 L (14-18) Glucose 97 (83-115) mg/dL Calcium 8.8 (8.5-10.1) mg/dL Total Bilirubin 0.3 (0.2-1.0) mg/dL AST 14 L (15-37) U/L ALT 14 (14-59) U/L Alkaline Phosphatase 69 (46-116) U/L Total Protein 7.3 (6.4-8.2) g/dl Albumin 3.2 L (3.4-5.0) g/dl Globulin 4.1 gm/dL Albumin/Globulin Ratio 0.8 L (1-2) Lipase 106 (73-393) U/L Meds: Medications Generic Name Dose Route Start Last Admin Trade Name Freq PRN Reason Stop Dose Admin Sodium Chloride 1,000 mls @ 125 mls/hr 10/30/19 12:00 10/30/19 12:10 Normal Saline IV 125 mls/hr ASDIRECTED FIORELLA Administration Sodium Chloride 100 mls @ 60 mls/hr 10/30/19 13:00 10/30/19 13:16 Normal Saline IV 60 mls/hr ASDIRECTED FIORELLA Administration Sodium Chloride 10 ml 10/30/19 11:50 10/30/19 12:10 Saline Flush FLUSH 10 ml ASDIRECTED PRN Administration Keep Vein Open Discontinued Medications Generic Name Dose Route Start Last Admin Trade Name Freq PRN Reason Stop Dose Admin Barium Sulfate 450 ml 10/30/19 12:50 10/30/19 13:17 Volumen 0.1% Susp PO 10/30/19 12:51 900 ml PREPRO ONE Administration Iopamidol 100 ml 10/30/19 12:50 10/30/19 13:16 Isovue-370 (76%) IVPUSH 10/30/19 12:51 100 ml ONETIME ONE Administration Ondansetron HCl 4 mg 10/30/19 11:50 10/30/19 12:10 Zofran IVPUSH 10/30/19 11:51 4 mg ONETIME ONE Administration Sodium Chloride 10 ml 10/30/19 12:50 10/30/19 13:16 Saline Flush FLUSH 10/30/19 12:51 10 ml ONETIME ONE Administration - Re-Assessments/Exams Free Text/Narrative Re-Assessment/Exam: 10/30/19 12:40 I ordered labs, IV NS, zofran 4mg IV and CT of her abdomen and pelvis. 10/30/19 14:38 Her Hgb is low at 8.9. PT is normal. PTT is elevated at 21. Her CMP is negative. Her lipase is normal. 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 Atherosclerotic change is seen within the aortoiliac vessels. No etiology is seen for patient's GI bleed as noted in the clinical history. Other findings believed to be incidental as noted above. The cause of the bleed is not clear. I feel she needs to be admitted. I called Dr Clark and she agreed to the admission. Departure - Departure Time of Disposition: 14:45 Disposition: Admitted As Inpatient 65 Condition: Fair Clinical Impression: GI bleed Qualifiers: GI bleed type/associated pathology: unspecified gastrointestinal hemorrhage type Qualified Code(s): K92.2 - Gastrointestinal hemorrhage, unspecified Anemia Qualifiers: Anemia type: other cause Other causes of anemia: other cause, not classified Qualified Code(s): D64.89 - Other specified anemias - Discharge Information Referrals: Percy Dunham MD [Primary Care Provider] - Forms: ED Department Discharge Sepsis Event Note (ED) - Evaluation Sepsis Screening Result: No Definite Risk - Focused Exam Vital Signs: Vital Signs Temp Pulse Resp BP Pulse Ox 10/30/19 11:21 97.6 F 85 20 132/107 H 92 L - My Orders Last 24 Hours: My Active Orders 10/30/19 11:50 Sodium Chloride 0.9% [Saline Flush] 10 ml FLUSH ASDIRECTED PRN ED Antiemetic Medication Reflex [OM.PC] Stat Peripheral IV Insertion Adult [OM.PC] Stat 10/30/19 11:51 Peripheral IV Care [RC] . DIRECTED 10/30/19 12:00 Sodium Chloride 0.9% [Normal Saline] 1,000 ml IV ASDIRECTED 10/30/19 13:00 Sodium Chloride 0.9% [Normal Saline] 100 ml IV ASDIRECTED 10/30/19 14:18 CORONAVIRUS COVID-19 RAPID [MOLEC] Stat - Assessment/Plan Last 24 Hours: My Active Orders 10/30/19 11:50 Sodium Chloride 0.9% [Saline Flush] 10 ml FLUSH ASDIRECTED PRN ED Antiemetic Medication Reflex [OM.PC] Stat Peripheral IV Insertion Adult [OM.PC] Stat 10/30/19 11:51 Peripheral IV Care [RC] . DIRECTED 10/30/19 12:00 Sodium Chloride 0.9% [Normal Saline] 1,000 ml IV ASDIRECTED 10/30/19 13:00 Sodium Chloride 0.9% [Normal Saline] 100 ml IV ASDIRECTED 10/30/19 14:18 CORONAVIRUS COVID-19 RAPID [MOLEC] Stat
[2019-10-30] MEDS ORDERED: Iopamidol 755 Mg/ML 100 ML Bottle IVPUSH ONE (12:50)
[2019-10-30] MEDS ORDERED: Barium Sulfate 0.1% Susp 450 ML Bottle PO ONE (12:50)
[2019-10-30] MEDS ORDERED: Sodium Chloride 0.9% 10 ML Syringe FLUSH ONE (12:50)
[2019-10-30] MEDS ORDERED: Sodium Chloride 0.9% 100 ML IV SCH (13:00)
--- NOTE | 2019-10-30 13:57 | CT ---
CT abdomen and pelvis Technique: Multiple axial sections were obtained from above the dome of the diaphragm inferiorly through the pubic symphysis. Intravenous contrast was given during the arterial phase. Delayed imaging was obtained. Negative oral contrast was utilized. Reconstructed coronal and sagittal images were obtained. 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 Diffuse atherosclerotic change is seen. Mid aorta has an AP dimension of 2.3 cm and distal aorta has an AP dimension of 2.2 cm. Ectasia is noted of both common iliac arteries. Diffuse atherosclerotic change is seen within the aortoiliac arteries. Celiac axis and superior mesenteric arteries are patent. No discrete stenosis within the renal arteries are seen. Visualized lung bases shows atelectasis. Liver contains no focal abnormality. Spleen size is normal. Kidneys show symmetric contrast enhancement without hydronephrosis or mass. Delayed images shows contrast throughout the ureters into the bladder. Pancreas shows no discrete abnormality. No retroperitoneal adenopathy or mesenteric abnormalities are seen. Appendix is seen which is normal. No pelvic mass or adenopathy is seen. No bowel dilatation is appreciated. Diverticuli are seen within the sigmoid colon without findings of diverticulitis. Slight increased stool within the rectum is noted. Bone window settings were reviewed which shows endplate concavities which appear to be old. Scattered degenerative change and osteopenia are seen. Impression: 1. 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 2. Atherosclerotic change is seen within the aortoiliac vessels. 3. No etiology is seen for patient's GI bleed as noted in the clinical history. 4. Other findings believed to be incidental as noted above. Diagnostic code #2 This report was dictated in MDT
--- NOTE | 2019-10-30 14:57 | PCM.HP.2 ---
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 Sent to PCP's office from alf. Hb checked yesterday at 10.2 and repeat today of 9. Denies any abdominal pain, diarrhea, constipation, nausea, vomiting, chest pain, palpitations, headaches, shortness of breath. - Related Data Allergies/Adverse Reactions: Allergies Allergy/AdvReac Type Severity Reaction Status Date / Time No Known Allergies Allergy Verified 10/30/19 11:25 Home Medications: Home Meds Aspirin [Ecotrin] 81 mg PO DAILY 03/28/16 [History] Sertraline [Zoloft] 75 mg PO DAILY 03/28/16 [History] Docusate Sodium [Colace] 100 mg PO BID 05/30/19 [History] Magnesium Hydroxide [Milk of Magnesia] 30 ml PO TID 05/30/19 [History] Pantoprazole [ProTONIX] 40 mg PO DAILY 05/30/19 [History] amLODIPine [Norvasc] 5 mg PO DAILY 05/30/19 [History] atorvaSTATin [Lipitor] 10 mg PO DAILY 05/30/19 [History] levETIRAcetam [Keppra] 125 mg PO BID 05/30/19 [History] ARIPiprazole [Abilify] 2 mg PO BEDTIME 10/30/19 [History] Acetaminophen [Tylenol] 650 mg PO Q4H PRN 10/30/19 [History] Benztropine [Cogentin] 0.5 mg PO BID 10/30/19 [History] Calcium Carbonate/Vitamin D3 [Calcium 600 + Vit D 400 Softgl] 1 tab PO DAILY 10/30/19 [History] Past Medical History HEENT History: Reports: Impaired Vision Cardiovascular History: Reports: Stents Respiratory History: Reports: None Gastrointestinal History: Reports: None Genitourinary History: Reports: None Other OB/BYN History: unable to access. 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 Endocrine/Metabolic History: Reports: None Other Hematologic History: unable to access. Other Immunologic History: unable to access. Oncologic (Cancer) History: Reports: None Dermatologic History: Reports: None - Infectious Disease History Infectious Disease History: Reports: None Other Infectious Disease History: unable to access. - Past Surgical History Other HEENT Surgeries/Procedures: unable to assess Other Cardiovascular Surgeries/Procedures: unable to access. Other Respiratory Surgeries/Procedures: unable to access. Other GI Surgeries/Procedures: unable to access. Female Surgical History: Reports: None Other Female Surgeries/Procedures: unable to assess. Other Endocrine Surgeries/Procedures: unable to access. Other Neurological Surgeries/Procedures: unable to access. Other Musculoskeletal Surgeries/Procedures:: unable to access. Pt fell May 2015, hospitalized in [place] for 1 1/2 weeks then went to the [facility] home Other Oncologic Surgeries/Procedures: unable to access. Social & Family History - Family History Family Medical History: Noncontributory - Tobacco Use Smoking Status *Q: Never Smoker Second Hand Smoke Exposure: No - Caffeine Use Caffeine Use: Reports: None - Recreational Drug Use Recreational Drug Use: No - Living Situation & Occupation Living situation: Reports: , Extended Care Facility Occupation: Retired H&P Review of Systems - Review of Systems: Review Of Systems: Unable To Obtain Reason Not Obtained: Patient refusing to answer Exam - Exam Exam: See Below - Vital Signs Vital Signs: Last Vital Signs Temp 97.6 F 10/30/19 11:21 Pulse 85 10/30/19 11:21 Resp 20 10/30/19 11:21 BP 132/107 H 10/30/19 11:21 Pulse Ox 92 L 10/30/19 11:21 Weight: 61.235 kg - Exam General: Alert, Cooperative, Mild Distress HEENT: Conjunctiva Clear, Mucosa Moist & [place], Pupils Equal, Pupils Reactive Neck: Supple, Trachea Midline Lungs: Clear to Auscultation, Normal Respiratory Effort, Decreased Breath Sounds. No: Crackles, Rales, Rhonchi, Rub, Stridor, Wheezing Cardiovascular: Regular Rate, Regular Rhythm. No: Systolic Murmur, Diastolic Murmur, Rubs, Gallop/S3, Gallop/S4 GI/Abdominal Exam: Normal Bowel Sounds, Soft, Non-Tender, Distended. No: Guarding, Rigid, Rebound Extremities: Normal Inspection, Non-Tender, Pedal Edema. No: Normal Range of Motion Peripheral Pulses: 1+: Radial (L), Radial (R) Skin: Warm - Patient Data Result Diagrams: 10/30/19 12:05 10/30/19 12:05 Sepsis Event Note - Evaluation Sepsis Screening Result: No Definite Risk - Problem List (1) Anemia due to blood loss, acute SNOMED Code(s): 970082362 ICD Code: D62 - ACUTE POSTHEMORRHAGIC ANEMIA Status: Acute Current Visit: Yes (2) Dyslipidemia SNOMED Code(s): 390411924 ICD Code: E78.5 - HYPERLIPIDEMIA, UNSPECIFIED Status: Acute Current Visit: Yes (3) Dysphagia SNOMED Code(s): 92321899, 309094827 ICD Code: R13.10 - DYSPHAGIA, UNSPECIFIED Status: Acute Current Visit: Yes (4) Flaccid hemiplegia affecting dominant side SNOMED Code(s): 252240408 ICD Code: G81.00 - FLACCID HEMIPLEGIA AFFECTING UNSPECIFIED SIDE Status: Acute Current Visit: Yes (5) Lower gastrointestinal bleed SNOMED Code(s): 07629536 ICD Code: K92.2 - GASTROINTESTINAL HEMORRHAGE, UNSPECIFIED Status: Acute Current Visit: Yes (6) Hypertension SNOMED Code(s): 89410991 ICD Code: I10 - ESSENTIAL (PRIMARY) HYPERTENSION Status: Acute Current Visit: Yes (7) History of pulmonary embolism SNOMED Code(s): 704540411 ICD Code: Z86.711 - PERSONAL HISTORY OF PULMONARY EMBOLISM Status: Acute Current Visit: Yes (8) Coronary artery disease SNOMED Code(s): 33711514 ICD Code: I25.10 - ATHSCL HEART DISEASE OF [place] CORONARY ARTERY W/O ANG PCTRS Status: Acute Current Visit: Yes (9) Abdominal aortic aneurysm (AAA) 3.0 cm to 5.0 cm in diameter in female SNOMED Code(s): 146687953 ICD Code: I71.4 - ABDOMINAL AORTIC ANEURYSM, WITHOUT RUPTURE Status: Acute Current Visit: Yes (10) Dementia SNOMED Code(s): 49847168 ICD Code: F03.90 - UNSPECIFIED DEMENTIA WITHOUT BEHAVIORAL DISTURBANCE Status: Acute Current Visit: Yes (11) Hypoalbuminemia SNOMED Code(s): 332848926 ICD Code: E88.09 - OTH DISORDERS OF PLASMA-PROTEIN METABOLISM, NEC Status: Acute Current Visit: Yes (12) Former smoker SNOMED Code(s): 1905028 ICD Code: Z87.891 - PERSONAL HISTORY OF NICOTINE DEPENDENCE Status: Acute Current Visit: Yes Problem List Initiated/Reviewed/Updated: Yes Assessment/Plan Comment:: ASSESSMENT Sent from PCPs office for rectal bleed Hb dropped overnight from 10.2 to 9 Rectal exam in ED with hemorrhoids and tinged with blood Abdominal exam is benign Repeat Hb 8.9 Hemodynamically stable ( BP 132/107, HR 85) CT abdomen did not find any obvious actively bleeding sites - Incidental AAA, 3.5cm in greatest diameter On aspirin daily at home No prior episodes PLAN Anemia due to blood loss, acute Lower gastrointestinal bleed Hemorrhoids - Hb/Hct every 4 hours - Anemia work-up - LR @100 - Golytely for colon prep - Surgery consult Hypertension - Hold home medications - PRN Hydralazine Prior hemorrhagic stroke with residual flaccid hemiplegia affecting dominant side and dysphagia Coronary artery disease Dyslipidemia - Hold aspirin and other home medications Hypoalbuminemia Decreased appetite - Prealbumin level - Vitamin levels - Dietary evaluation and follow-up Dementia - Let me sleep protocol - Hold home medications Abdominal aortic aneurysm (AAA) 3.0 cm to 5.0 cm in diameter in female - Will need follow up as an outpatient PROPHYLAXIS DVT- compression stockings GI- home pantoprazole IV CODE STATUS: DNR/DNI DISPOSITION: Patient will be admitted to medical floor for hemodynamic monitoring and trending of Hb as well as colon prep and surgical consult. SOCIAL: Lives in [facility] Wheelchair bound - Mortality Measure Prognosis:: Poor
[2019-10-30] MEDS ORDERED: Lactated Ringers 1,000 ML IV SCH (15:00)
[2019-10-30] MEDS ORDERED: Ondansetron 4 MG/2 ML SDV IV PRN (15:03)
[2019-10-30] MEDS ORDERED: Polyethylene Glycol/Electrolytes 4,000 ML Bottle PO ONE (17:16)
--- NOTE | 2019-10-30 20:00 | PCM.CONS ---
H&P History of Present Illness - General Date of Service: 10/30/19 Admit Problem/Dx: Lower gastrointestinal bleed Source of Information: Family, Provider History Limitations: Reports: Other (dementia) - History of Present Illness Initial Comments - Free Text/Narative: The patient is an 84 y/o lady who presents from her PCP for drop in hemoglobin, with rectal bleeding and decreased appetite. Per discussion with family, pt has been bleeding for 5-7 days. Pt is a poor historian but states she has no pain, nausea, vomiting or reflux. - Related Data Allergies/Adverse Reactions: Allergies Allergy/AdvReac Type Severity Reaction Status Date / Time No Known Allergies Allergy Verified 10/30/19 11:25 Home Medications: Home Meds Aspirin [Ecotrin] 81 mg PO DAILY 03/28/16 [History] Sertraline [Zoloft] 75 mg PO DAILY 03/28/16 [History] Docusate Sodium [Colace] 100 mg PO BID 05/30/19 [History] Magnesium Hydroxide [Milk of Magnesia] 30 ml PO TID 05/30/19 [History] Pantoprazole [ProTONIX] 40 mg PO DAILY 05/30/19 [History] amLODIPine [Norvasc] 5 mg PO DAILY 05/30/19 [History] atorvaSTATin [Lipitor] 10 mg PO DAILY 05/30/19 [History] levETIRAcetam [Keppra] 125 mg PO BID 05/30/19 [History] ARIPiprazole [Abilify] 2 mg PO BEDTIME 10/30/19 [History] Acetaminophen [Tylenol] 650 mg PO Q4H PRN 10/30/19 [History] Benztropine [Cogentin] 0.5 mg PO BID 10/30/19 [History] Calcium Carbonate/Vitamin D3 [Calcium 600 + Vit D 400 Softgl] 1 tab PO DAILY 10/30/19 [History] Past Medical History HEENT History: Reports: Impaired Vision Cardiovascular History: Reports: Stents Respiratory History: Reports: None Gastrointestinal History: Reports: None Genitourinary History: Reports: None Other OB/BYN History: unable to access. 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 Endocrine/Metabolic History: Reports: None Other Hematologic History: unable to access. Other Immunologic History: unable to access. Oncologic (Cancer) History: Reports: None Dermatologic History: Reports: None - Infectious Disease History Infectious Disease History: Reports: None Other Infectious Disease History: unable to access. - Past Surgical History Other HEENT Surgeries/Procedures: unable to assess Other Cardiovascular Surgeries/Procedures: unable to access. Other Respiratory Surgeries/Procedures: unable to access. Other GI Surgeries/Procedures: unable to access. Female Surgical History: Reports: None Other Female Surgeries/Procedures: unable to assess. Other Endocrine Surgeries/Procedures: unable to access. Other Neurological Surgeries/Procedures: unable to access. Other Musculoskeletal Surgeries/Procedures:: unable to access. Pt fell May 2015, hospitalized in [place] for 1 1/2 weeks then went to the [facility] home Other Oncologic Surgeries/Procedures: unable to access. Social & Family History - Family History Family Medical History: Unobtainable (pt with dementia) - Tobacco Use Smoking Status *Q: Never Smoker Second Hand Smoke Exposure: No - Caffeine Use Caffeine Use: Reports: None - Recreational Drug Use Recreational Drug Use: No - Living Situation & Occupation Living situation: Reports: , Extended Care Facility Occupation: Retired H&P Review of Systems - Review of Systems: Review Of Systems: Unable To Obtain Reason Not Obtained: pt with demenia, not reliable historian Exam - Exam Exam: See Below - Vital Signs Vital Signs: Last Vital Signs Temp 36.6 C 10/30/19 16:51 Pulse 73 10/30/19 16:56 Resp 20 10/30/19 16:51 BP 105/58 L 10/30/19 16:51 Pulse Ox 95 10/30/19 16:56 Weight: 61.235 kg - Exam Quality Assessment: Supplemental Oxygen General: Alert HEENT: EOMI Neck: Supple Lungs: Normal Respiratory Effort GI/Abdominal Exam: Soft, Non-Tender, No Distention Skin: Warm, Dry, Intact Neurological: Cranial Nerves Intact - Patient Data Lab Results Last 24 hrs: Laboratory Results - last 24 hr 10/30/19 10/30/19 10/30/19 Range/Units 12:05 12:05 12:05 WBC 7.75 (3.98-10.04) K/mm3 RBC 3.69 L (3.98-5.22) M/mm3 Hgb 8.9 L (11.2-15.7) gm/dl Hct 30.8 L (34.1-44.9) % MCV 83.5 (79.4-94.8) fl MCH 24.1 L (25.6-32.2) pg MCHC 28.9 L (32.2-35.5) g/dl RDW Std Deviation 55.6 H (36.4-46.3) fL Plt Count 285 (182-369) K/mm3 MPV 11.9 (9.4-12.3) fl Neut % (Auto) 56.2 (34.0-71.1) % Lymph % (Auto) 28.6 (19.3-51.7) % [place] % (Auto) 9.5 (4.7-12.5) % Eos % (Auto) 5.2 (0.7-5.8) Baso % (Auto) 0.4 (0.1-1.2) % Neut # (Auto) 4.35 (1.56-6.13) K/mm3 Lymph # (Auto) 2.22 (1.18-3.74) K/mm3 [place] # (Auto) 0.74 H (0.24-0.36) K/mm3 Eos # (Auto) 0.40 H (0.04-0.36) K/mm3 Baso # (Auto) 0.03 (0.01-0.08) K/mm3 Manual Slide Review Abnormal smear Percent Retic (0.50-1.70) % PT 10.6 (9.7-12.0) SECONDS INR 0.99 APTT 21 L (22-31) SECONDS Sodium 138 (136-145) mEq/L Potassium 4.3 (3.5-5.1) mEq/L Chloride 101 (98-107) mEq/L Carbon Dioxide 29 (21-32) mEq/L Anion Gap 12.3 (5-15) BUN 12 (7-18) mg/dL Creatinine 0.9 (0.55-1.02) mg/dL Est Cr Clr Drug Dosing 36.97 mL/min Estimated GFR (MDRD) 60 (>60) mL/min BUN/Creatinine Ratio 13.3 L (14-18) Glucose 97 (83-115) mg/dL POC Glucose (83-110) mg/dL Calcium 8.8 (8.5-10.1) mg/dL Ferritin (8-252) ng/ml Total Bilirubin 0.3 (0.2-1.0) mg/dL AST 14 L (15-37) U/L ALT 14 (14-59) U/L Alkaline Phosphatase 69 (46-116) U/L Total Protein 7.3 (6.4-8.2) g/dl Albumin 3.2 L (3.4-5.0) g/dl Globulin 4.1 gm/dL Albumin/Globulin Ratio 0.8 L (1-2) Lipase 106 (73-393) U/L Vitamin B12 (193-986) pg/ml Folate (8.6-58.9) ng/mL COVID-19 (KIRSTY) (NEGATIVE) 10/30/19 10/30/19 10/30/19 Range/Units 12:05 12:05 15:05 WBC (3.98-10.04) K/mm3 RBC (3.98-5.22) M/mm3 Hgb (11.2-15.7) gm/dl Hct (34.1-44.9) % MCV (79.4-94.8) fl MCH (25.6-32.2) pg MCHC (32.2-35.5) g/dl RDW Std Deviation (36.4-46.3) fL Plt Count (182-369) K/mm3 MPV (9.4-12.3) fl Neut % (Auto) (34.0-71.1) % Lymph % (Auto) (19.3-51.7) % [place] % (Auto) (4.7-12.5) % Eos % (Auto) (0.7-5.8) Baso % (Auto) (0.1-1.2) % Neut # (Auto) (1.56-6.13) K/mm3 Lymph # (Auto) (1.18-3.74) K/mm3 [place] # (Auto) (0.24-0.36) K/mm3 Eos # (Auto) (0.04-0.36) K/mm3 Baso # (Auto) (0.01-0.08) K/mm3 Manual Slide Review Percent Retic 1.46 (0.50-1.70) % PT (9.7-12.0) SECONDS INR APTT (22-31) SECONDS Sodium (136-145) mEq/L Potassium (3.5-5.1) mEq/L Chloride (98-107) mEq/L Carbon Dioxide (21-32) mEq/L Anion Gap (5-15) BUN (7-18) mg/dL Creatinine (0.55-1.02) mg/dL Est Cr Clr Drug Dosing mL/min Estimated GFR (MDRD) (>60) mL/min BUN/Creatinine Ratio (14-18) Glucose (83-115) mg/dL POC Glucose (83-110) mg/dL Calcium (8.5-10.1) mg/dL Ferritin 14 (8-252) ng/ml Total Bilirubin (0.2-1.0) mg/dL AST (15-37) U/L ALT (14-59) U/L Alkaline Phosphatase (46-116) U/L Total Protein (6.4-8.2) g/dl Albumin (3.4-5.0) g/dl Globulin gm/dL Albumin/Globulin Ratio (1-2) Lipase (73-393) U/L Vitamin B12 344 (193-986) pg/ml Folate 19.5 (8.6-58.9) ng/mL COVID-19 (KIRSTY) Negative (NEGATIVE) 10/30/19 Range/Units 18:53 WBC (3.98-10.04) K/mm3 RBC (3.98-5.22) M/mm3 Hgb (11.2-15.7) gm/dl Hct (34.1-44.9) % MCV (79.4-94.8) fl MCH (25.6-32.2) pg MCHC (32.2-35.5) g/dl RDW Std Deviation (36.4-46.3) fL Plt Count (182-369) K/mm3 MPV (9.4-12.3) fl Neut % (Auto) (34.0-71.1) % Lymph % (Auto) (19.3-51.7) % [place] % (Auto) (4.7-12.5) % Eos % (Auto) (0.7-5.8) Baso % (Auto) (0.1-1.2) % Neut # (Auto) (1.56-6.13) K/mm3 Lymph # (Auto) (1.18-3.74) K/mm3 [place] # (Auto) (0.24-0.36) K/mm3 Eos # (Auto) (0.04-0.36) K/mm3 Baso # (Auto) (0.01-0.08) K/mm3 Manual Slide Review Percent Retic (0.50-1.70) % PT (9.7-12.0) SECONDS INR APTT (22-31) SECONDS Sodium (136-145) mEq/L Potassium (3.5-5.1) mEq/L Chloride (98-107) mEq/L Carbon Dioxide (21-32) mEq/L Anion Gap (5-15) BUN (7-18) mg/dL Creatinine (0.55-1.02) mg/dL Est Cr Clr Drug Dosing mL/min Estimated GFR (MDRD) (>60) mL/min BUN/Creatinine Ratio (14-18) Glucose (83-115) mg/dL POC Glucose 102 (83-110) mg/dL Calcium (8.5-10.1) mg/dL Ferritin (8-252) ng/ml Total Bilirubin (0.2-1.0) mg/dL AST (15-37) U/L ALT (14-59) U/L Alkaline Phosphatase (46-116) U/L Total Protein (6.4-8.2) g/dl Albumin (3.4-5.0) g/dl Globulin gm/dL Albumin/Globulin Ratio (1-2) Lipase (73-393) U/L Vitamin B12 (193-986) pg/ml Folate (8.6-58.9) ng/mL COVID-19 (KISRTY) (NEGATIVE) Result Diagrams: 10/30/19 12:05 10/30/19 12:05 Sepsis Event Note - Evaluation Sepsis Screening Result: No Definite Risk - Focused Exam Vital Signs: Vital Signs Temp Temp Pulse Pulse Resp BP BP 10/30/19 16:56 73 10/30/19 16:51 36.6 C 81 20 105/58 L 10/30/19 11:21 36.4 C 85 20 132/107 H Pulse Ox 10/30/19 16:56 95 10/30/19 16:51 84 L 10/30/19 11:21 92 L *Q Meaningful Use (ADM) - VTE Risk Assess *Q Each Risk Factor Represents 3 Points: Age 75 Years or Greater, History of DVT/PE Total Score 3 Point Risk Factors: 6 Consult PN Assessment/Plan Procedures: Procedures ASSAY OF FERRITIN (10/09/19) ASSAY OF MAGNESIUM (05/30/19) ASSAY OF NATRIURETIC PEPTIDE (05/30/19) ASSAY OF TROPONIN QUANT (05/30/19) C-REACTIVE PROTEIN (10/09/19) CHEST X-RAY 1 VIEW FRONTAL (03/28/16) COMPLETE CBC W/AUTO DIFF WBC (10/09/19) COMPREHEN METABOLIC PANEL (10/09/19) CREATINE MB FRACTION (05/30/19) CT HEAD/BRAIN W/O DYE (05/30/19) ELECTROCARDIOGRAM TRACING (05/30/19) EMERGENCY DEPT VISIT (10/09/19) GLUCOSE BLOOD TEST (05/30/19) HYDRATION IV INFUSION INIT (05/30/19) PROTHROMBIN TIME (05/30/19) ROUTINE VENIPUNCTURE (10/09/19) THER/PROPH/DIAG IV INF INIT (03/28/16) THROMBOPLASTIN TIME PARTIAL (05/30/19) X-RAY EXAM CHEST 1 VIEW (05/30/19) X-RAY EXAM CHEST 2 VIEWS (10/09/19) (1) Anemia due to blood loss, acute SNOMED Code(s): 881619894 Code(s): D62 - ACUTE POSTHEMORRHAGIC ANEMIA Current Visit: Yes (2) GI bleed SNOMED Code(s): 44963834 Code(s): K92.2 - GASTROINTESTINAL HEMORRHAGE, UNSPECIFIED Current Visit: Yes Qualifiers: GI bleed type/associated pathology: unspecified gastrointestinal hemorrhage type Qualified Code(s): K92.2 - Gastrointestinal hemorrhage, unspecified Problem List Initiated/Reviewed/Updated: Yes Plan: 84 y/o lady with GI bleed and anemia. 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 consulted for EGD and colonoscopy - discussed at length with son who is POA if procedures are within the goals of care. He would like for the patient to receive blood transfusions at this point to avoid the procedures. He would like us to keep him updated and plan for colonoscopy and EGD if the hemoglobin continues to drop - will continue to reevaluate. Trend Hg every 6 hours, transfuse as needed - medical management per primary team Desirae Hebert MD General surgery
--- NOTE | 2019-10-31 08:40 | PCM.CONSN ---
- General Info Date of Service: 10/31/19 Admission Dx/Problem (Free Text): Lower gastrointestinal bleed Subjective Update: Pt denies any abdominal pain. Per nursing, pt has not had any bowel movements overnight. - Patient Data Vitals - Most Recent: Last Vital Signs Temp 35.9 C L 10/31/19 04:48 Pulse 65 10/31/19 04:48 Resp 20 10/31/19 04:48 BP 108/60 10/31/19 04:48 Pulse Ox 96 10/31/19 04:48 Weight - Most Recent: 64.864 kg I&O - Last 24 Hours: Intake & Output 10/30/19 10/31/19 10/31/19 22:59 06:59 14:59 Intake Total 759 Output Total 900 Balance -141 Lab Results Last 24 Hours: Laboratory Results - last 24 hr 10/30/19 10/30/19 10/30/19 Range/Units 12:05 12:05 12:05 WBC 7.75 (3.98-10.04) K/mm3 RBC 3.69 L (3.98-5.22) M/mm3 Hgb 8.9 L (11.2-15.7) gm/dl Hct 30.8 L (34.1-44.9) % MCV 83.5 (79.4-94.8) fl MCH 24.1 L (25.6-32.2) pg MCHC 28.9 L (32.2-35.5) g/dl RDW Std Deviation 55.6 H (36.4-46.3) fL Plt Count 285 (182-369) K/mm3 MPV 11.9 (9.4-12.3) fl Neut % (Auto) 56.2 (34.0-71.1) % Lymph % (Auto) 28.6 (19.3-51.7) % [place] % (Auto) 9.5 (4.7-12.5) % Eos % (Auto) 5.2 (0.7-5.8) Baso % (Auto) 0.4 (0.1-1.2) % Neut # (Auto) 4.35 (1.56-6.13) K/mm3 Lymph # (Auto) 2.22 (1.18-3.74) K/mm3 [place] # (Auto) 0.74 H (0.24-0.36) K/mm3 Eos # (Auto) 0.40 H (0.04-0.36) K/mm3 Baso # (Auto) 0.03 (0.01-0.08) K/mm3 Manual Slide Review Abnormal smear Percent Retic (0.50-1.70) % PT 10.6 (9.7-12.0) SECONDS INR 0.99 APTT 21 L (22-31) SECONDS Sodium 138 (136-145) mEq/L Potassium 4.3 (3.5-5.1) mEq/L Chloride 101 (98-107) mEq/L Carbon Dioxide 29 (21-32) mEq/L Anion Gap 12.3 (5-15) BUN 12 (7-18) mg/dL Creatinine 0.9 (0.55-1.02) mg/dL Est Cr Clr Drug Dosing 36.97 mL/min Estimated GFR (MDRD) 60 (>60) mL/min BUN/Creatinine Ratio 13.3 L (14-18) Glucose 97 (83-115) mg/dL POC Glucose (83-110) mg/dL Calcium 8.8 (8.5-10.1) mg/dL Ferritin (8-252) ng/ml Total Bilirubin 0.3 (0.2-1.0) mg/dL AST 14 L (15-37) U/L ALT 14 (14-59) U/L Alkaline Phosphatase 69 (46-116) U/L Total Protein 7.3 (6.4-8.2) g/dl Albumin 3.2 L (3.4-5.0) g/dl Globulin 4.1 gm/dL Albumin/Globulin Ratio 0.8 L (1-2) Lipase 106 (73-393) U/L Vitamin B12 (193-986) pg/ml Folate (8.6-58.9) ng/mL COVID-19 (KIRSTY) (NEGATIVE) MRSA (PCR) 10/30/19 10/30/19 10/30/19 Range/Units 12:05 12:05 15:05 WBC (3.98-10.04) K/mm3 RBC (3.98-5.22) M/mm3 Hgb (11.2-15.7) gm/dl Hct (34.1-44.9) % MCV (79.4-94.8) fl MCH (25.6-32.2) pg MCHC (32.2-35.5) g/dl RDW Std Deviation (36.4-46.3) fL Plt Count (182-369) K/mm3 MPV (9.4-12.3) fl Neut % (Auto) (34.0-71.1) % Lymph % (Auto) (19.3-51.7) % [place] % (Auto) (4.7-12.5) % Eos % (Auto) (0.7-5.8) Baso % (Auto) (0.1-1.2) % Neut # (Auto) (1.56-6.13) K/mm3 Lymph # (Auto) (1.18-3.74) K/mm3 [place] # (Auto) (0.24-0.36) K/mm3 Eos # (Auto) (0.04-0.36) K/mm3 Baso # (Auto) (0.01-0.08) K/mm3 Manual Slide Review Percent Retic 1.46 (0.50-1.70) % PT (9.7-12.0) SECONDS INR APTT (22-31) SECONDS Sodium (136-145) mEq/L Potassium (3.5-5.1) mEq/L Chloride (98-107) mEq/L Carbon Dioxide (21-32) mEq/L Anion Gap (5-15) BUN (7-18) mg/dL Creatinine (0.55-1.02) mg/dL Est Cr Clr Drug Dosing mL/min Estimated GFR (MDRD) (>60) mL/min BUN/Creatinine Ratio (14-18) Glucose (83-115) mg/dL POC Glucose (83-110) mg/dL Calcium (8.5-10.1) mg/dL Ferritin 14 (8-252) ng/ml Total Bilirubin (0.2-1.0) mg/dL AST (15-37) U/L ALT (14-59) U/L Alkaline Phosphatase (46-116) U/L Total Protein (6.4-8.2) g/dl Albumin (3.4-5.0) g/dl Globulin gm/dL Albumin/Globulin Ratio (1-2) Lipase (73-393) U/L Vitamin B12 344 (193-986) pg/ml Folate 19.5 (8.6-58.9) ng/mL COVID-19 (KIRSTY) Negative (NEGATIVE) MRSA (PCR) 10/30/19 10/30/19 10/30/19 Range/Units 18:53 20:14 21:10 WBC (3.98-10.04) K/mm3 RBC (3.98-5.22) M/mm3 Hgb 8.6 L (11.2-15.7) gm/dl Hct 29.5 L (34.1-44.9) % MCV (79.4-94.8) fl MCH (25.6-32.2) pg MCHC (32.2-35.5) g/dl RDW Std Deviation (36.4-46.3) fL Plt Count (182-369) K/mm3 MPV (9.4-12.3) fl Neut % (Auto) (34.0-71.1) % Lymph % (Auto) (19.3-51.7) % [place] % (Auto) (4.7-12.5) % Eos % (Auto) (0.7-5.8) Baso % (Auto) (0.1-1.2) % Neut # (Auto) (1.56-6.13) K/mm3 Lymph # (Auto) (1.18-3.74) K/mm3 [place] # (Auto) (0.24-0.36) K/mm3 Eos # (Auto) (0.04-0.36) K/mm3 Baso # (Auto) (0.01-0.08) K/mm3 Manual Slide Review Percent Retic (0.50-1.70) % PT (9.7-12.0) SECONDS INR APTT (22-31) SECONDS Sodium (136-145) mEq/L Potassium (3.5-5.1) mEq/L Chloride (98-107) mEq/L Carbon Dioxide (21-32) mEq/L Anion Gap (5-15) BUN (7-18) mg/dL Creatinine (0.55-1.02) mg/dL Est Cr Clr Drug Dosing mL/min Estimated GFR (MDRD) (>60) mL/min BUN/Creatinine Ratio (14-18) Glucose (83-115) mg/dL POC Glucose 102 (83-110) mg/dL Calcium (8.5-10.1) mg/dL Ferritin (8-252) ng/ml Total Bilirubin (0.2-1.0) mg/dL AST (15-37) U/L ALT (14-59) U/L Alkaline Phosphatase (46-116) U/L Total Protein (6.4-8.2) g/dl Albumin (3.4-5.0) g/dl Globulin gm/dL Albumin/Globulin Ratio (1-2) Lipase (73-393) U/L Vitamin B12 (193-986) pg/ml Folate (8.6-58.9) ng/mL COVID-19 (KRISTY) (NEGATIVE) MRSA (PCR) Negative 10/30/19 10/31/19 10/31/19 Range/Units 23:10 00:47 03:13 WBC (3.98-10.04) K/mm3 RBC (3.98-5.22) M/mm3 Hgb 8.1 L 8.3 L (11.2-15.7) gm/dl Hct 27.7 L 28.7 L (34.1-44.9) % MCV (79.4-94.8) fl MCH (25.6-32.2) pg MCHC (32.2-35.5) g/dl RDW Std Deviation (36.4-46.3) fL Plt Count (182-369) K/mm3 MPV (9.4-12.3) fl Neut % (Auto) (34.0-71.1) % Lymph % (Auto) (19.3-51.7) % [place] % (Auto) (4.7-12.5) % Eos % (Auto) (0.7-5.8) Baso % (Auto) (0.1-1.2) % Neut # (Auto) (1.56-6.13) K/mm3 Lymph # (Auto) (1.18-3.74) K/mm3 [place] # (Auto) (0.24-0.36) K/mm3 Eos # (Auto) (0.04-0.36) K/mm3 Baso # (Auto) (0.01-0.08) K/mm3 Manual Slide Review Percent Retic (0.50-1.70) % PT (9.7-12.0) SECONDS INR APTT (22-31) SECONDS Sodium (136-145) mEq/L Potassium (3.5-5.1) mEq/L Chloride (98-107) mEq/L Carbon Dioxide (21-32) mEq/L Anion Gap (5-15) BUN (7-18) mg/dL Creatinine (0.55-1.02) mg/dL Est Cr Clr Drug Dosing mL/min Estimated GFR (MDRD) (>60) mL/min BUN/Creatinine Ratio (14-18) Glucose (83-115) mg/dL POC Glucose 91 (83-110) mg/dL Calcium (8.5-10.1) mg/dL Ferritin (8-252) ng/ml Total Bilirubin (0.2-1.0) mg/dL AST (15-37) U/L ALT (14-59) U/L Alkaline Phosphatase (46-116) U/L Total Protein (6.4-8.2) g/dl Albumin (3.4-5.0) g/dl Globulin gm/dL Albumin/Globulin Ratio (1-2) Lipase (73-393) U/L Vitamin B12 (193-986) pg/ml Folate (8.6-58.9) ng/mL COVID-19 (KIRSTY) (NEGATIVE) MRSA (PCR) 10/31/19 10/31/19 Range/Units 06:14 07:03 WBC (3.98-10.04) K/mm3 RBC (3.98-5.22) M/mm3 Hgb 8.1 L (11.2-15.7) gm/dl Hct 28.4 L (34.1-44.9) % MCV (79.4-94.8) fl MCH (25.6-32.2) pg MCHC (32.2-35.5) g/dl RDW Std Deviation (36.4-46.3) fL Plt Count (182-369) K/mm3 MPV (9.4-12.3) fl Neut % (Auto) (34.0-71.1) % Lymph % (Auto) (19.3-51.7) % [place] % (Auto) (4.7-12.5) % Eos % (Auto) (0.7-5.8) Baso % (Auto) (0.1-1.2) % Neut # (Auto) (1.56-6.13) K/mm3 Lymph # (Auto) (1.18-3.74) K/mm3 [place] # (Auto) (0.24-0.36) K/mm3 Eos # (Auto) (0.04-0.36) K/mm3 Baso # (Auto) (0.01-0.08) K/mm3 Manual Slide Review Percent Retic (0.50-1.70) % PT (9.7-12.0) SECONDS INR APTT (22-31) SECONDS Sodium (136-145) mEq/L Potassium (3.5-5.1) mEq/L Chloride (98-107) mEq/L Carbon Dioxide (21-32) mEq/L Anion Gap (5-15) BUN (7-18) mg/dL Creatinine (0.55-1.02) mg/dL Est Cr Clr Drug Dosing mL/min Estimated GFR (MDRD) (>60) mL/min BUN/Creatinine Ratio (14-18) Glucose (83-115) mg/dL POC Glucose 85 (83-110) mg/dL Calcium (8.5-10.1) mg/dL Ferritin (8-252) ng/ml Total Bilirubin (0.2-1.0) mg/dL AST (15-37) U/L ALT (14-59) U/L Alkaline Phosphatase (46-116) U/L Total Protein (6.4-8.2) g/dl Albumin (3.4-5.0) g/dl Globulin gm/dL Albumin/Globulin Ratio (1-2) Lipase (73-393) U/L Vitamin B12 (193-986) pg/ml Folate (8.6-58.9) ng/mL COVID-19 (KIRSTY) (NEGATIVE) MRSA (PCR) Med Orders - Current: Current Medications Sodium Chloride (Normal Saline) 1,000 mls @ 125 mls/hr IV ASDIRECTED FIORELLA Last Admin: 10/30/19 12:10 Dose: 125 mls/hr Documented by: Sodium Chloride (Normal Saline) 100 mls @ 60 mls/hr IV ASDIRECTED FIORELLA Last Admin: 10/30/19 13:16 Dose: 60 mls/hr Documented by: Lactated Ringer's (Ringers, Lactated) 1,000 mls @ 100 mls/hr IV ASDIRECTED FIORELLA Last Admin: 10/31/19 01:14 Dose: 100 mls/hr Documented by: Ondansetron HCl (Zofran) 4 mg IV Q6H PRN PRN Reason: Nausea/Vomiting Sodium Chloride (Saline Flush) 10 ml FLUSH ASDIRECTED PRN PRN Reason: Keep Vein Open Last Admin: 10/30/19 12:10 Dose: 10 ml Documented by: Discontinued Medications Barium Sulfate (Volumen 0.1% Susp) 450 ml PO PREPRO ONE Stop: 10/30/19 12:51 Last Admin: 10/30/19 13:17 Dose: 900 ml Documented by: Iopamidol (Isovue-370 (76%)) 100 ml IVPUSH ONETIME ONE Stop: 10/30/19 12:51 Last Admin: 10/30/19 13:16 Dose: 100 ml Documented by: Ondansetron HCl (Zofran) 4 mg IVPUSH ONETIME ONE Stop: 10/30/19 11:51 Last Admin: 10/30/19 12:10 Dose: 4 mg Documented by: Polyethylene Glycol/Electrolytes (Golytely) 4,000 ml PO ONETIME ONE Stop: 10/30/19 17:17 Last Admin: 10/31/19 01:11 Dose: Not Given Documented by: Sodium Chloride (Saline Flush) 10 ml FLUSH ONETIME ONE Stop: 10/30/19 12:51 Last Admin: 10/30/19 13:16 Dose: 10 ml Documented by: - Exam Quality Assessment: No: Supplemental Oxygen General: Alert HEENT: Pupils Equal, EOMI Lungs: Normal Respiratory Effort GI/Abdominal Exam: Soft, Non-Tender, No Distention Sepsis Event Note - Evaluation Sepsis Screening Result: No Definite Risk - Focused Exam Vital Signs: Vital Signs Temp Pulse Resp BP Pulse Ox 10/31/19 04:48 35.9 C L 65 20 108/60 96 10/31/19 00:55 36.3 C 76 18 128/66 91 L 10/30/19 21:08 36.3 C 71 20 136/94 H 97 Consult PN Assessment/Plan Procedures: Procedures ASSAY OF FERRITIN (10/09/19) ASSAY OF MAGNESIUM (05/30/19) ASSAY OF NATRIURETIC PEPTIDE (05/30/19) ASSAY OF TROPONIN QUANT (05/30/19) C-REACTIVE PROTEIN (10/09/19) CHEST X-RAY 1 VIEW FRONTAL (03/28/16) COMPLETE CBC W/AUTO DIFF WBC (10/09/19) COMPREHEN METABOLIC PANEL (10/09/19) CREATINE MB FRACTION (05/30/19) CT HEAD/BRAIN W/O DYE (05/30/19) ELECTROCARDIOGRAM TRACING (05/30/19) EMERGENCY DEPT VISIT (10/09/19) GLUCOSE BLOOD TEST (05/30/19) HYDRATION IV INFUSION INIT (05/30/19) PROTHROMBIN TIME (05/30/19) ROUTINE VENIPUNCTURE (10/09/19) THER/PROPH/DIAG IV INF INIT (03/28/16) THROMBOPLASTIN TIME PARTIAL (05/30/19) X-RAY EXAM CHEST 1 VIEW (05/30/19) X-RAY EXAM CHEST 2 VIEWS (10/09/19) (1) Anemia due to blood loss, acute SNOMED Code(s): 714043634 Code(s): D62 - ACUTE POSTHEMORRHAGIC ANEMIA Current Visit: Yes (2) GI bleed SNOMED Code(s): 06129265 Code(s): K92.2 - GASTROINTESTINAL HEMORRHAGE, UNSPECIFIED Current Visit: Yes Qualifiers: GI bleed type/associated pathology: unspecified gastrointestinal hemorrhage type Qualified Code(s): K92.2 - Gastrointestinal hemorrhage, unspecified Problem List Initiated/Reviewed/Updated: Yes Plan: 84 y/o lady with GI bleed and anemia. 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 consulted for EGD and colonoscopy - Hg appears to be stable. Trend Hg every 6 hours, transfuse as needed. Will evaluate for need for possible EGD/colonoscopy after next hemoglobin level - pt may have clear liquids if cleared by primary team - medical management per primary team Desirae Hebert MD General surgery
[2019-10-31] MEDS ORDERED: Dextrose 5%-Lactated Ringers 1,000 ML IV SCH (08:45)
--- NOTE | 2019-10-31 12:28 | PCM.PN ---
- General Info Date of Service: 10/31/19 Subjective Update: BM yesterday NPO No complaints - Patient Data Vitals - Most Recent: Last Vital Signs Temp 97.0 F 10/31/19 08:37 Pulse 73 10/31/19 08:37 Resp 20 10/31/19 08:37 BP 112/78 10/31/19 08:37 Pulse Ox 92 L 10/31/19 08:37 Weight - Most Recent: 64.864 kg - Exam General: Alert, Cooperative, No Acute Distress. No: Oriented HEENT: Pupils Equal, Pupils Reactive, Mucous Membr. Moist/[place] Neck: Supple. No: Trachea Midline Lungs: Clear to Auscultation, Normal Respiratory Effort. No: Decreased Breath Sounds, Crackles, Rales, Rhonchi, Rub, Stridor, Wheezing Cardiovascular: Regular Rate, Regular Rhythm. No: Murmurs, Gallops, Rubs GI/Abdominal Exam: Normal Bowel Sounds, Soft, Non-Tender, Distended. No: Guarding, Rigid, Rebound Extremities: Normal Inspection, Non-Tender, Pedal Edema Peripheral Pulses: 2+: Radial (L), Radial (R) Skin: Warm, Dry Neurological: No New Focal Deficit Sepsis Event Note - Evaluation Sepsis Screening Result: No Definite Risk - Problem List & Annotations (1) Anemia due to blood loss, acute SNOMED Code(s): 616896002 Code(s): D62 - ACUTE POSTHEMORRHAGIC ANEMIA Status: Acute Current Visit: Yes (2) Dyslipidemia SNOMED Code(s): 181739193 Code(s): E78.5 - HYPERLIPIDEMIA, UNSPECIFIED Status: Acute Current Visit: Yes (3) Dysphagia SNOMED Code(s): 35161117, 613566706 Code(s): R13.10 - DYSPHAGIA, UNSPECIFIED Status: Acute Current Visit: Yes (4) Flaccid hemiplegia affecting dominant side SNOMED Code(s): 992485027 Code(s): G81.00 - FLACCID HEMIPLEGIA AFFECTING UNSPECIFIED SIDE Status: Acute Current Visit: Yes (5) Lower gastrointestinal bleed SNOMED Code(s): 59238318 Code(s): K92.2 - GASTROINTESTINAL HEMORRHAGE, UNSPECIFIED Status: Acute Current Visit: Yes (6) Hypertension SNOMED Code(s): 07617886 Code(s): I10 - ESSENTIAL (PRIMARY) HYPERTENSION Status: Acute Current Visit: Yes (7) History of pulmonary embolism SNOMED Code(s): 155786385 Code(s): Z86.711 - PERSONAL HISTORY OF PULMONARY EMBOLISM Status: Acute Current Visit: Yes (8) Coronary artery disease SNOMED Code(s): 45944954 Code(s): I25.10 - ATHSCL HEART DISEASE OF [place] CORONARY ARTERY W/O ANG PCTRS Status: Acute Current Visit: Yes (9) Abdominal aortic aneurysm (AAA) 3.0 cm to 5.0 cm in diameter in female SNOMED Code(s): 173209134 Code(s): I71.4 - ABDOMINAL AORTIC ANEURYSM, WITHOUT RUPTURE Status: Acute Current Visit: Yes (10) Dementia SNOMED Code(s): 73394513 Code(s): F03.90 - UNSPECIFIED DEMENTIA WITHOUT BEHAVIORAL DISTURBANCE Stat us: Acute Current Visit: Yes (11) Hypoalbuminemia SNOMED Code(s): 099810156 Code(s): E88.09 - OTH DISORDERS OF PLASMA-PROTEIN METABOLISM, NEC Status: Acute Current Visit: Yes (12) Former smoker SNOMED Code(s): 8665621 Code(s): Z87.891 - PERSONAL HISTORY OF NICOTINE DEPENDENCE Status: Acute Current Visit: Yes (13) Vitamin D deficiency SNOMED Code(s): 50652080 Code(s): E55.9 - VITAMIN D DEFICIENCY, UNSPECIFIED Status: Acute Current Visit: Yes - Problem List Review Problem List Initiated/Reviewed/Updated: Yes - Assessment Assessment:: 10/30/2019 Sent from PCPs office for rectal bleed Hb dropped overnight from 10.2 to 9 Rectal exam in ED with hemorrhoids and tinged with blood Abdominal exam is benign Repeat Hb 8.9 Hemodynamically stable ( BP 132/107, HR 85) CT abdomen did not find any obvious actively bleeding sites - Incidental AAA, 3.5cm in greatest diameter On aspirin daily at home No prior episodes PLAN - Hb/Hct every 4 hours - Anemia work-up - LR @100 - Surgery consult - NPO - Hold aspirin - Prealbumin level - Vitamin levels - Dietary evaluation and follow-up - Let me sleep protocol - Hold home medications 10/31/2019 Slept OK BM yesterday on 2L NC, sats dropped overnight to 84% VS trend - BP 105-136/58-107 - HR 71-85 - Tmax 97.9 - SatO2 drop to 84 responded to NC up to 92% Balance - UO 900 - 24 hour balance -141 Hb trend: 8.9-->8.6-->8.1-->8.3-->8.1-->9 Vitamin D level outpatient 8 - Plan Plan:: PLAN Anemia due to blood loss, acute Lower gastrointestinal bleed Hemorrhoids - Hb/Hct every 4 hours - Anemia work-up - LR @100 Hypertension - Hold home medications - PRN Hydralazine 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
--- NOTE | 2019-11-01 13:05 | PCM.DCSUM1 ---
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 [facility]. Hb checked yesterday at 10.2 and repeat today of 9. Denies any abdominal pain, diarrhea, constipation, nausea, vomiting, chest pain, palpitations, headaches, shortness of breath. ASSESSMENT Sent from PCPs office for rectal bleed Hb dropped overnight from 10.2 to 9 Rectal exam in ED with hemorrhoids and tinged with blood Abdominal exam is benign Repeat Hb 8.9 Hemodynamically stable ( BP 132/107, HR 85) CT abdomen did not find any obvious actively bleeding sites - Incidental AAA, 3.5cm in greatest diameter On aspirin daily at home No prior episodes PLAN Anemia due to blood loss, acute Lower gastrointestinal bleed Hemorrhoids - Hb/Hct every 4 hours - Anemia work-up - LR @100 - Golytely for colon prep - Surgery consult Hypertension - Hold home medications - PRN Hydralazine Prior hemorrhagic stroke with residual flaccid hemiplegia affecting dominant side and dysphagia Coronary artery disease Dyslipidemia - Hold aspirin and other home medications Hypoalbuminemia Decreased appetite - Prealbumin level - Vitamin levels - Dietary evaluation and follow-up Dementia - Let me sleep protocol - Hold home medications Abdominal aortic aneurysm (AAA) 3.0 cm to 5.0 cm in diameter in female - Will need follow up as an outpatient PROPHYLAXIS DVT- compression stockings GI- home pantoprazole IV CODE STATUS: DNR/DNI DISPOSITION: Patient will be admitted to medical floor for hemodynamic monitoring and trending of Hb as well as colon prep and surgical consult. SOCIAL: Lives in [facility] Wheelchair bound - Mortality Measure Prognosis:: Poor Diagnosis: Stroke: No - Discharge Data Discharge Date: 11/01/19 Discharge Disposition: DC/Tfer to [facility] Condition: Good - Referral to Home Health Primary Care Physician: Percy Dunham MD - Discharge Diagnosis/Problem(s) (1) Abdominal aortic aneurysm (AAA) 3.0 cm to 5.0 cm in diameter in female SNOMED Code(s): 047238895 ICD Code: I71.4 - ABDOMINAL AORTIC ANEURYSM, WITHOUT RUPTURE Status: Acute Current Visit: Yes (2) Anemia due to blood loss, acute SNOMED Code(s): 085773123 ICD Code: D62 - ACUTE POSTHEMORRHAGIC ANEMIA Status: Acute Current Visit: Yes (3) Dementia SNOMED Code(s): 16540101 ICD Code: F03.90 - UNSPECIFIED DEMENTIA WITHOUT BEHAVIORAL DISTURBANCE Status: Acute Current Visit: Yes (4) GI bleed SNOMED Code(s): 42080603 ICD Code: K92.2 - GASTROINTESTINAL HEMORRHAGE, UNSPECIFIED Status: Acute Current Visit: Yes Qualifiers: GI bleed type/associated pathology: unspecified gastrointestinal hemorrhage type Qualified Code(s): K92.2 - Gastrointestinal hemorrhage, unspecified (5) Vitamin D deficiency SNOMED Code(s): 19471625 ICD Code: E55.9 - VITAMIN D DEFICIENCY, UNSPECIFIED Status: Acute Current Visit: Yes - Patient Summary/Data Consults: Consultations 10/30/19 15:03 OT Evaluation and Treatment [CONS] Routine PT Evaluation and Treatment [CONS] Routine 10/30/19 16:02 Consult to Physician [CONS] Stat Hospital Course: 10/30/2019 Sent from PCPs office for rectal bleed Hb dropped overnight from 10.2 to 9 Rectal exam in ED with hemorrhoids and tinged with blood Abdominal exam is benign Repeat Hb 8.9 Hemodynamically stable ( BP 132/107, HR 85) CT abdomen did not find any obvious actively bleeding sites - Incidental AAA, 3.5cm in greatest diameter On aspirin daily at home No prior episodes PLAN - Hb/Hct every 4 hours - Anemia work-up - LR @100 - Surgery consult - NPO - Hold aspirin - Prealbumin level - Vitamin levels - Dietary evaluation and follow-up - Let me sleep protocol - Hold home medications 10/31/2019 Slept OK BM yesterday on 2L NC, sats dropped overnight to 84% VS trend - BP 105-136/58-107 - HR 71-85 - Tmax 97.9 - SatO2 drop to 84 responded to NC up to 92% Balance - UO 900 - 24 hour balance -141 Hb trend: 8.9-->8.6-->8.1-->8.3-->8.1-->9 Vitamin D level outpatient 8 11/01/2019 Patient is asymptomatic She is requesting to go home. Pulse ox continues to be low requiring 1.5 L per nasal cannula. Likely secondary to anemia. No signs of infection. Hemoglobin stable: 8.9-->8.6-->8.1-->8.3-->8.1-->9-->8.5 Will need recheck hemoglobin early next week. - Patient Instructions Diet: Mechanical Soft Activity: As Tolerated Driving: Do Not Drive Notify Provider of: Fever, Nausea and/or Vomiting Other/Special Instructions: Follow up with PCP next week. Repeat CBC on Tuesday. - Discharge Plan *PRESCRIPTION DRUG MONITORING PROGRAM REVIEWED*: No *COPY OF PRESCRIPTION DRUG MONITORING REPORT IN PATIENT JIGAR: No Prescriptions/Med Rec: Cholecalciferol (Vitamin D3) [Vitamin D3] 5,000 unit PO DAILY #30 tablet Home Medications: Home Meds Sertraline [Zoloft] 75 mg PO DAILY 03/28/16 [History] Docusate Sodium [Colace] 100 mg PO BID PRN 05/30/19 [History] Magnesium Hydroxide [Milk of Magnesia] 30 ml PO TID PRN 05/30/19 [History] Pantoprazole [ProTONIX] 40 mg PO DAILY 05/30/19 [History] amLODIPine [Norvasc] 5 mg PO DAILY 05/30/19 [History] atorvaSTATin [Lipitor] 10 mg PO DAILY 05/30/19 [History] levETIRAcetam [Keppra] 125 mg PO BID 05/30/19 [History] ARIPiprazole [Abilify] 2 mg PO BEDTIME 10/30/19 [History] Acetaminophen [Tylenol] 650 mg PO Q4H PRN 10/30/19 [History] Benztropine [Cogentin] 0.5 mg PO BID 10/30/19 [History] Calcium Carbonate/Vitamin D3 [Calcium 600 + Vit D 400 Softgl] 1 tab PO DAILY 10/30/19 [History] Cholecalciferol (Vitamin D3) [Vitamin D3] 5,000 unit PO DAILY #30 tablet 11/01/19 [Rx] Oxygen Therapy Mode: Nasal Cannula Oxygen Flow Rate (L/min): 1.5 Maintain SPO2% less than: 97 Maintain SpO2% greater than: 90 Forms: ED Department Discharge Referrals: Percy Dunham MD [Primary Care Provider] - - Discharge Summary/Plan Comment DC Time >30 min.: Yes Discharge Summary/Plan Comment: Discharge to [facility]. Follow-up with primary care. No aspirin. Hemoglobin on Tuesday, November 05, 2019 - General Info Date of Service: 11/01/19 Admission Dx/Problem (Free Text: Lower gastrointestinal bleed Subjective Update: No complaints. Had a good night. Hemoglobin stable, most recent 8.5. - Review of Systems General: Reports: No Symptoms HEENT: Reports: No Symptoms Pulmonary: Reports: No Symptoms Cardiovascular: Reports: No Symptoms Gastrointestinal: Reports: No Symptoms Musculoskeletal: Reports: No Symptoms - Patient Data Vitals - Most Recent: Last Vital Signs Temp 97.5 F 11/01/19 03:37 Pulse 68 11/01/19 03:37 Resp 20 11/01/19 03:37 BP 117/73 11/01/19 03:37 Pulse Ox 94 L 11/01/19 03:37 Weight - Most Recent: 65.136 kg I&O - Last 24 hours: Intake & Output 10/31/19 11/01/19 11/01/19 22:59 06:59 14:59 Intake Total 1000 150 Output Total 600 350 Balance 400 -200 Lab Results - Last 24 hrs: Laboratory Results - last 24 hr 11/01/19 11/01/19 Range/Units 09:03 11:55 Hgb 8.5 L (11.2-15.7) gm/dl Hct 29.9 L (34.1-44.9) % COVID-19 (KIRSTY) Negative (NEGATIVE) Med Orders - Current: Current Medications Ondansetron HCl (Zofran) 4 mg IV Q6H PRN PRN Reason: Nausea/Vomiting Sodium Chloride (Saline Flush) 10 ml FLUSH ASDIRECTED PRN PRN Reason: Keep Vein Open Last Admin: 10/30/19 12:10 Dose: 10 ml Documented by: Discontinued Medications Barium Sulfate (Volumen 0.1% Susp) 450 ml PO PREPRO ONE Stop: 10/30/19 12:51 Last Admin: 10/30/19 13:17 Dose: 900 ml Documented by: Sodium Chloride (Normal Saline) 1,000 mls @ 125 mls/hr IV ASDIRECTED FIORELLA Last Admin: 10/30/19 12:10 Dose: 125 mls/hr Documented by: Sodium Chloride (Normal Saline) 100 mls @ 60 mls/hr IV ASDIRECTED FIORELLA Last Admin: 10/30/19 13:16 Dose: 60 mls/hr Documented by: Lactated Ringer's (Ringers, Lactated) 1,000 mls @ 100 mls/hr IV ASDIRECTED [facility] Last Admin: 10/31/19 01:14 Dose: 100 mls/hr Documented by: Dextrose/Lactated Ringer's (Dextrose 5%-Lactated Ringers) 1,000 mls @ 100 mls/hr IV ASDIRECTED [facility] Last Admin: 10/31/19 08:54 Dose: 100 mls/hr Documented by: Iopamidol (Isovue-370 (76%)) 100 ml IVPUSH ONETIME ONE Stop: 10/30/19 12:51 Last Admin: 10/30/19 13:16 Dose: 100 ml Documented by: Ondansetron HCl (Zofran) 4 mg IVPUSH ONETIME ONE Stop: 10/30/19 11:51 Last Admin: 10/30/19 12:10 Dose: 4 mg Documented by: Polyethylene Glycol/Electrolytes (Golytely) 4,000 ml PO ONETIME ONE Stop: 10/30/19 17:17 Last Admin: 10/31/19 01:11 Dose: Not Given Documented by: Sodium Chloride (Saline Flush) 10 ml FLUSH ONETIME ONE Stop: 10/30/19 12:51 Last Admin: 10/30/19 13:16 Dose: 10 ml Documented by: - Exam Quality Assessment: Reports: Supplemental Oxygen General: Reports: Alert, Oriented HEENT: Reports: Pupils Equal, Mucous Membr. Moist/[place] Neck: Reports: Supple Lungs: Reports: Clear to Auscultation, Normal Respiratory Effort Cardiovascular: Reports: Regular Rate, Regular Rhythm GI/Abdominal Exam: Normal Bowel Sounds, Soft, Non-Tender, No Distention Extremities: Normal Inspection, Normal Range of Motion, Non-Tender, No Pedal Edema, Normal Capillary Refill Skin: Reports: Warm, Dry, Intact Psy/Mental Status: Reports: Alert, Normal Affect, Normal Mood
[2019-11-01 13:34] VITALS: BP 101/75; PULSE 75
== END 2019-11-01 15:38 | DRG 394 ==
LOC: JD.ED 11:06 → JD.MS 14:57
PROVIDERS: ADMIT Internal Medicine; ATTEND Internal Medicine
DX: K64.9 Unspecified hemorrhoids (principal); D64.89 Other specified anemias; H54.7 Unspecified visual loss; Z95.5 Presence of coronary angioplasty implant and graft; Z86.73 Personal history of transient ischemic attack (TIA), and cerebral infarction without residual deficits; D62 Acute posthemorrhagic anemia; I69.351 Hemiplegia and hemiparesis following cerebral infarction affecting right dominant side; E88.09 Other disorders of plasma-protein metabolism, not elsewhere classified; Z66 Do not resuscitate; Z20.828 Contact with and (suspected) exposure to other viral communicable diseases; F03.90 Unspecified dementia, unspecified severity, without behavioral disturbance, psychotic disturbance, mood disturbance, and anxiety; I71.4 Abdominal aortic aneurysm, without rupture; F32.9 Major depressive disorder, single episode, unspecified; E55.9 Vitamin D deficiency, unspecified; Z79.82 Long term (current) use of aspirin; Z79.899 Other long term (current) drug therapy; Z87.891 Personal history of nicotine dependence
CPT/HCPCS: 36415; 74177; 80053; 82607; 82728; 82746; 83690; 85025; 85045; 85610; 85730; 96374; 99284; J2405; J7030; J7050; Q9967; 80048; 82962; 83735; 84100; 85014; 85018; 87641; 94760; 97110-GP; 97162-GP; 97165-GO; 97530-GO; J7120; J7121; U0002

== ENCOUNTER 2020-08-10 17:51 | Emergency (ER) | payer MEDICARE, BC, MEDICAID ==
--- NOTE | 2020-08-10 18:11 | EDM.PDOCBH ---
ED HPI GENERAL MEDICAL PROBLEM - General Chief Complaint: Behavioral/Psych Stated Complaint: [facility] Time Seen by Provider: 08/10/20 18:00 Source of Information: Reports: EMS, Long Term Records History Limitations: Reports: Altered Mental Status (Patient carries a diagnosis of dementia.) - History of Present Illness INITIAL COMMENTS - FREE TEXT/NARRATIVE: 84-year-old female who is currently a resident of [facility] is brought to the ED for evaluation of agitation. Apparently she was just recently taken off antipsychotic medication that was being used for behavioral control issues related to underlying dementia. Is unclear when her medication was discontinued and I have to look to see exactly what medication she was on. Old notes suggest that she was on low-dose Risperidone 0.5 mg twice daily . The note also suggest she was on 2 mg of Abilify at bedtime and not risperidone. I am not sure if the antipsychotic medication was changed during last hospitalization. At any rate [facility]p today indicates that she has been weaned off her medication and today has become much more agitated. They there for have been advised by the long-term care provider at the [facility] to give her an IM injection of Haldol but staff felt that this was not going to be possible. She was therefore brought to the emergency room for further eval uation. On my assessment the patient does have a right-sided hemiparesis apparently from previous CVA. She is multiple bruises on her right hand forearm and arm. She allowed me to examine her without any issues. However once the nurses tried to remove her clothing she fought them to the nail. On my initial examination patient has an irregular irregular heartbeat which I suspect is atrial fibrillation at greater than 110 bpm. She also appears to be working hard to breathe and I suspect is in congestive heart failure. O2 sats were around 88 to 89%. She would not allow oxygen cannula to stay on and she would not allow the nursing staff to even obtain an ECG. She therefore required sedation with intramuscular Haldol 2.5 mg and Ativan 1 mg so that appropriate investigations can be completed. No useful history can be gleaned from the patient although she seems to understand my voice when I mentioned that she had several bruises on her arm she looked at the bruises and made eye contact with me. Is unclear but she may well have an expressive aphasia related to right- sided stroke. Onset: Unknown/Unsure (Unknown if symptoms all started today or if they have been brewing for the last several days. Is also unclear when she was last dosed with an antipsychotic medication.) Duration: Day(s):, Getting Worse Location: Reports: Generalized (Generalized agitation. Apparently she was trying to escape the [facility] on multiple occasions today. She gets around by the way of a wheelchair and they had to place a wheelchair alarm I would lock the doors if she got close to the doors today. They were not able to calm her down in any fashi) Quality: Reports: Other (Generalized agitation) Severity: Moderate Improves with: Reports: None Worsens with: Reports: Other (The more tension you try to put provide her the more) Context: Reports: Other (Generalized agitation with known history of dementia and previous intra cranial bleed with right-sided hemiparesis.). Denies: Activity ( agitated she becomes.), Exercise, Lifting, Sick Contact, Trauma Associated Symptoms: Reports: Confusion, Other (No useful history can be gleaned from the patient.) - Related Data Allergies Allergy/AdvReac Type Severity Reaction Status Date / Time No Known Allergies Allergy Verified 08/10/20 17:57 Home Meds: Home Meds Sertraline [Zoloft] 75 mg PO DAILY 03/28/16 [History] Docusate Sodium [Colace] 100 mg PO BID PRN 05/30/19 [History] Magnesium Hydroxide [Milk of Magnesia] 30 ml PO TID PRN 05/30/19 [History] Pantoprazole [ProTONIX] 40 mg PO DAILY 05/30/19 [History] amLODIPine [Norvasc] 5 mg PO DAILY 05/30/19 [History] atorvaSTATin [Lipitor] 10 mg PO DAILY 05/30/19 [History] levETIRAcetam [Keppra] 125 mg PO BID 05/30/19 [History] Acetaminophen [Tylenol] 650 mg PO Q4H PRN 10/30/19 [History] Calcium Carbonate/Vitamin D3 [Calcium 600Mg-D3 400 Unit Sfgl] 1 tab PO DAILY 10/30/19 [History] Cholecalciferol (Vitamin D3) [Vitamin D3] 5,000 unit PO DAILY #30 tablet 11/01/19 [Rx] ARIPiprazole [Abilify] 2 mg PO DAILY #30 tab 08/10/20 [Rx] Albuterol Sulfate 2.5 mg IH 08/10/20 [History] Ascorbic Acid [Vitamin C] 1,000 mg PO ASDIRECTED 08/10/20 [History] Ferrous Sulfate 1 tab PO ASDIRECTED 08/10/20 [History] Hydrocodone/Acetaminophen [Vicodin Hp 10-300 mg Tablet] 1 each PO 08/10/20 [History] Mirtazapine [Remeron] 15 mg PO BEDTIME 08/10/20 [History] ondansetron HCL [Zofran] 08/10/20 [History] Past Medical History HEENT History: Reports: Impaired Vision Cardiovascular History: Reports: Stents Respiratory History: Reports: None Gastrointestinal History: Reports: None Other Gastrointestinal History: dysphagia Genitourinary History: Reports: None Other [employer] History: unable to access. Musculoskeletal History: Reports: Other (See Below) Other Musculoskeletal History: pt. 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 Patient apparently suffered an intracranial hemorrhage with right-sided hemiparesis in March 2014. Apparently she gets around in a wheelchair in the [facility] and is regaining some function of her right upper extremity but is unable to walk. Psychiatric History: Reports: Depression Other Psychiatric History: unable to access. Endocrine/Metabolic History: Reports: None Hematologic History: Reports: Anemia, Other (See Below) Other Hematologic History: unable to access. Other Immunologic History: unable to access. Oncologic (Cancer) History: Reports: None Dermatologic History: Reports: None - Infectious Disease History Infectious Disease History: Reports: None Other Infectious Disease History: unable to access. - Past Surgical History Other HEENT Surgeries/Procedures: unable to assess Other Cardiovascular Surgeries/Procedures: unable to access. Other Respiratory Surgeries/Procedures: unable to access. Other GI Surgeries/Procedures: unable to access. Female Surgical History: Reports: None Other Female Surgeries/Procedures: unable to assess. Other Endocrine Surgeries/Procedures: unable to access. Other Neurological Surgeries/Procedures: unable to access. Other Musculoskeletal Surgeries/Procedures:: unable to access. Pt fell May 2015, hospitalized in [place] for 1 1/2 weeks then went to the [facility] Other Oncologic Surgeries/Procedures: unable to access. Social & Family History - Family History Family Medical History: Unobtainable (pt with dementia) - Caffeine Use Caffeine Use: Reports: None - Living Situation & Occupation Living situation: Reports: , Extended Care Facility (Patient is currently a resident of [facility]) Occupation: Retired ED ROS GENERAL - Review of Systems Review Of Systems: See Below (Patient is nonverbal either because of dementia or previous CVA with expressive aphasia. No useful information was gleaned from the patient) ED EXAM, BEHAVIORAL HEALTH - Physical Exam Exam: See Below Exam Limited By: Physical Impairment (Patient does not seem to respond verbally but does seem to make eye contact and understand my questions to her. She makes eye contact and when I commented on the bruises on her right upper extremity she looked down at the bruises.) General Appearance: Mild Distress, Other (Appears out of her element and distressed and anxious. Mildly agitated which worsens if you try to remove her clothing. She was not cooperative and trying to obtain an ECG or leave her ECG leads in place. She therefore required sedation with intramuscular Haldol 2.5 mg and Ativan 1 mg to allow ap) Eye Exam: Bilateral Eye: Normal Inspection (Mild blepharal pallor. No scleral icterus.), PERRL Throat/Mouth: Other (Tongue appears to be mildly dry.) Head: Atraumatic, Normocephalic Neck: Normal Inspection, Supple, Non-Tender, Full Range of Motion. No: L ymphadenopathy (L), Lymphadenopathy (R) Respiratory/Chest: Respiratory Distress (Tachypneic at rest 24 to 26/min with O2 sats of 88 to 90%.), Decreased Breath Sounds (Few crackles heard in both posterior lung bases. Decreased breath sounds to lower 20% lung benedict bilaterally. No dullness to percussion to suggest pleural effusion.), Rales. No: Lungs Clear Cardiovascular: No Edema, No Gallop, No Murmur, No Rub, Irregularly Irregular (Heart rate is irregular irregular and greater than 110 bpm. Suspect atrial fibrillation versus ectopic beats). No: Regular Rate, Rhythm (.) GI/Abdominal: Normal Bowel Sounds, Soft, Non-Tender, No Organomegaly, No Mass, Pelvis Stable, Other (Does not clinically appear to be in any urinary retention.). No: Guarding, Rigid, Rebound Back Exam: Other (Mild kyphosis thoracic spine.) Extremities: Other (Multiple bruises dorsal right hand right forearm and right humerus area. She does with move the right upper extremity that does not appear to have a flexion contracture.) Neurological: Other (Appears to have right lower extremity weakness but difficult to tell for sure if she is not cooperative for examination of the neural system.). No: Normal Mood/Affect, Normal Cognition, Oriented x 3 Psychiatric: Restless, Agitated, Non-Communicative. No: Normal Affect, Normal Cognition, Oriented Skin Exam: Warm (Mildly agitated but becomes much more agitated if you try to remove her clothes etc.), Dry, Intact, Normal color #1 Interpretation EKG Date: 08/10/20 Time: 18:46 Rhythm: Other Rate (Beats/Min): 100 [place]: LAD-Left [place] Deviation (Left axis deviation -66 degrees) P-Wave: Variable (Variable P waves. Consider ectopic atrial tachycardia.) QRS: Other (Q waves V1 and V2. Consider old anteroseptal myocardial infarction. There are near Q waves in leads II, III and aVF consider old inferior wall myocardial infarction) ST-T: Normal QT: Normal EKG Interpretation Comments: Abnormal ECG COURSE, BEHAVIORAL HEALTH COMP - Course Vital Signs: Last Vital Signs Temp 36.7 C 08/10/20 18:16 Pulse 103 H 08/10/20 18:16 Resp 24 H 08/10/20 18:16 BP 143/68 H 08/10/20 18:16 Pulse Ox 90 L 08/10/20 18:16 Orders, Labs, Meds: Active Orders 24 hr Category Date Time Status EKG Documentation Completion [RC] STAT Care 08/10/20 18:33 Active Oxygen Therapy [RC] ASDIRECTED Care 08/10/20 18:33 Active SEDIMENTATION RATE AUTO [HEME] Stat Lab 08/10/20 19:00 Received Sodium Chloride 0.9% [Normal Saline] 1,000 ml Med 08/10/20 18:45 Active IV ASDIRECTED Medication Orders Sodium Chloride (Normal Saline) 1,000 mls @ 75 mls/hr IV ASDIRECTED FIORELLA Last Admin: 08/10/20 19:27 Dose: 75 mls/hr Documented by: JUSTIN Laboratory Tests 08/10/20 08/10/20 08/10/20 Range/Units 19:00 19:00 19:00 WBC 8.47 (3.98-10.04) K/mm3 RBC 4.03 (3.98-5.22) M/mm3 Hgb 12.4 D (11.2-15.7) gm/dl Hct 40.4 (34.1-44.9) % MCV 100.2 H D (79.4-94.8) fl MCH 30.8 (25.6-32.2) pg MCHC 30.7 L (32.2-35.5) g/dl RDW Std Deviation 60.9 H (36.4-46.3) fL Plt Count 137 L D (182-369) K/mm3 Neut % (Auto) 72.9 H (34.0-71.1) % Lymph % (Auto) 18.8 L (19.3-51.7) % [place] % (Auto) 7.6 (4.7-12.5) % Eos % (Auto) 0.5 L (0.7-5.8) Baso % (Auto) 0.1 (0.1-1.2) % Neut # (Auto) 6.18 H (1.56-6.13) K/mm3 Lymph # (Auto) 1.59 (1.18-3.74) K/mm3 [place] # (Auto) 0.64 H (0.24-0.36) K/mm3 Eos # (Auto) 0.04 (0.04-0.36) K/mm3 Baso # (Auto) 0.01 (0.01-0.08) K/mm3 Manual Slide Review Not Reportable PT 10.7 (9.7-12.0) SECONDS INR 1.00 APTT 20.9 L (21.7-31.4) SECONDS Sodium 144 (136-145) mEq/L Potassium 4.0 (3.5-5.1) mEq/L Chloride 104 (98-107) mEq/L Carbon Dioxide 24 (21-32) mEq/L Anion Gap 20.0 H (5-15) BUN 21 H (7-18) mg/dL Creatinine 1.0 (0.55-1.02) mg/dL Est Cr Clr Drug Dosing 32.53 mL/min Estimated GFR (MDRD) 53 (>60) mL/min BUN/Creatinine Ratio 21.0 H (14-18) Glucose 113 H (70-99) mg/dL Calcium 9.5 (8.5-10.1) mg/dL Magnesium 1.9 (1.8-2.4) mg/dL Total Bilirubin 0.2 (0.2-1.0) mg/dL AST 23 (15-37) U/L ALT 21 (14-59) U/L Alkaline Phosphatase 80 (46-116) U/L CK-MB (CK-2) 1.7 (0-3.6) ng/ml Troponin I < 0.017 (0.00-0.056) ng/mL C-Reactive Protein 0.3 (<1.0) mg/dL NT-Pro-B Natriuret Pep (0-450) pg/mL Total Protein 8.0 (6.4-8.2) g/dl Albumin 3.6 (3.4-5.0) g/dl Globulin 4.4 gm/dL Albumin/Globulin Ratio 0.8 L (1-2) Urine Color (Yellow) Urine Appearance (Clear) Urine pH (5.0-8.0) Ur Specific [place] (1.005-1.030) Urine Protein (Negative) Urine Glucose (UA) (Negative) Urine Ketones (Negative) Urine Occult Blood (Negative) Urine Nitrite (Negative) Urine Bilirubin (Negative) Urine Urobilinogen (0.2-1.0) Ur Leukocyte Esterase (Negative) Urine RBC (0-5) /hpf Urine WBC (0-5) /hpf Ur Epithelial Cells (0-5) /hpf Urine Bacteria (FEW) /hpf Urine Mucus (FEW) /hpf Ethyl Alcohol (0.00) gm% 08/10/20 08/10/20 08/10/20 Range/Units 19:00 19:00 19:20 WBC (3.98-10.04) K/mm3 RBC (3.98-5.22) M/mm3 Hgb (11.2-15.7) gm/dl Hct (34.1-44.9) % MCV (79.4-94.8) fl MCH (25.6-32.2) pg MCHC (32.2-35.5) g/dl RDW Std Deviation (36.4-46.3) fL Plt Count (182-369) K/mm3 Neut % (Auto) (34.0-71.1) % Lymph % (Auto) (19.3-51.7) % [place] % (Auto) (4.7-12.5) % Eos % (Auto) (0.7-5.8) Baso % (Auto) (0.1-1.2) % Neut # (Auto) (1.56-6.13) K/mm3 Lymph # (Auto) (1.18-3.74) K/mm3 [place] # (Auto) (0.24-0.36) K/mm3 Eos # (Auto) (0.04-0.36) K/mm3 Baso # (Auto) (0.01-0.08) K/mm3 Manual Slide Review PT (9.7-12.0) SECONDS INR APTT (21.7-31.4) SECONDS Sodium (136-145) mEq/L Potassium (3.5-5.1) mEq/L Chloride (98-107) mEq/L Carbon Dioxide (21-32) mEq/L Anion Gap (5-15) BUN (7-18) mg/dL Creatinine (0.55-1.02) mg/dL Est Cr Clr Drug Dosing mL/min Estimated GFR (MDRD) (>60) mL/min BUN/Creatinine Ratio (14-18) Glucose (70-99) mg/dL Calcium (8.5-10.1) mg/dL Magnesium (1.8-2.4) mg/dL Total Bilirubin (0.2-1.0) mg/dL AST (15-37) U/L ALT (14-59) U/L Alkaline Phosphatase (46-116) U/L CK-MB (CK-2) (0-3.6) ng/ml Troponin I (0.00-0.056) ng/mL C-Reactive Protein (<1.0) mg/dL NT-Pro-B Natriuret Pep 171 (0-450) pg/mL Total Protein (6.4-8.2) g/dl Albumin (3.4-5.0) g/dl Globulin gm/dL Albumin/Globulin Ratio (1-2) Urine Color Yellow (Yellow) Urine Appearance Clear (Clear) Urine pH 5.5 (5.0-8.0) Ur Specific [place] > or = 1.030 (1.005-1.030) Urine Protein 3+ H (Negative) Urine Glucose (UA) Negative (Negative) Urine Ketones Negative (Negative) Urine Occult Blood 2+ H (Negative) Urine Nitrite Negative (Negative) Urine Bilirubin Negative (Negative) Urine Urobilinogen 0.2 (0.2-1.0) Ur Leukocyte Esterase Negative (Negative) Urine RBC 5-10 H (0-5) /hpf Urine WBC 0-5 (0-5) /hpf Ur Epithelial Cells 0-5 (0-5) /hpf Urine Bacteria Few (FEW) /hpf Urine Mucus Few (FEW) /hpf Ethyl Alcohol 0.00 (0.00) gm% Medications Generic Name Dose Route Start Last Admin Trade Name Freq PRN Reason Stop Dose Admin Sodium Chloride 1,000 mls @ 75 mls/hr 08/10/20 18:45 08/10/20 19:27 Normal Saline IV 75 mls/hr ASDIRECTED FIORELLA Administration Discontinued Medications Generic Name Dose Route Start Last Admin Trade Name Freq PRN Reason Stop Dose Admin Haloperidol Lactate 2.5 mg 08/10/20 18:16 08/10/20 18:27 Haloperidol Lactate 5 Mg/Ml Sdv IM 08/10/20 18:17 2.5 mg ONETIME ONE Administration Haloperidol Lactate Confirm 08/10/20 18:18 08/10/20 18:27 Haloperidol Lactate 5 Mg/Ml Sdv Administered 08/10/20 18:19 Not Given Dose 5 mg .ROUTE .STK-MED ONE Lorazepam 1 mg 08/10/20 18:16 08/10/20 18:49 Lorazepam 2 Mg/Ml Sdv IM 08/10/20 18:17 1 mg ONETIME ONE Administration Lorazepam Confirm 08/10/20 18:18 08/10/20 18:32 Lorazepam 2 Mg/Ml Sdv Administered 08/10/20 18:19 Not Given Dose 2 mg .ROUTE .STK-MED ONE Lorazepam 1 mg 08/10/20 19:14 08/10/20 18:27 Lorazepam 2 Mg/Ml Sdv IM 08/10/20 19:15 1 mg ONETIME ONE Administration Re-Assessment/Re-Exam: 84-year-old female presents to the ED from [facility] where she is a resident. She is brought to the ED due to increased agitation today. It is believed that since discontinuation of her antipsychotic medications her behavior has deteriorated indicating that she needs to stay on antipsychotic therapy. Patient has a history of previous intracranial hemorrhage with right- sided hemiparesis. She still able to get around apparently in a wheelchair and does use her right upper extremity. She is nonverbal however. I am not sure if this is since stroke with an expressive aphasia or secondary to her underlying dementia. We have to clarify what antipsychotics she used to take and when it was last given to her. At this time we were unable to get her to cooperate with undressing and placement of ECG electrodes etc. On my exam initial examination she seemed to be in atrial fibrillation with a rate greater than 110 bpm with few crackles in both lung bases. O2 sats were 88 to 90% but she does not hold still a very long enough to get a good [place]. She is tachypneic at 24 to 26 breaths/min possibly due to agitation but possibly due to congestive heart failure. Benign abdominal examination. She is afebrile. Unfortunately she will require medication for sedation. She will be given Haldol 2.5 mg first and will see how she does. If this does not provide satisfactory sedation she will also be given Ativan 1 mg IM. After this investigations will be completed to sort out whether she has any underlying medical illness to cause her current agitation. Re-Assessment/Re-Exam Date: 08/10/20 (Daughter is here now and indicates that her mother used to be an alcoholic. She states similar type behaviors have occurred when she has been drinking alcohol. There is some concern that poss ibly alcohol was obtained from visitors or other family members while in the [facility]. A serum blood alcohol will therefore be ordered. We try to establish from the [facility] when her Abilify was discontinued and it looks like it was mid June and it appears that she was on 2 mg once daily. Unable to establish when she was on Risperdal although reportedly it worked better than the Abilify.) Re-Assessment/Re-Exam Time: 19:51 (White count is normal at 8.47. Differential shows 73% neutrophils on the auto differential. Hemoglobin is 12.4 with hematocrit of 40.4. MCV is mildly elevated at 100.2. Platelet count is low normal at 137,000. Urinalysis obtained by catheterization shows 3+ proteinuria 2+ occult blood and 5-10 RBCs per high-power field but no white cells and leukocyte esterase is negative.) Medical Clearance: 08/10/20 20:16 Sodium is 144 with a potassium of 4.0. Chloride 104 the bicarb of 24. Anion gap is 20.0. BUN is 21 with a creatinine of 1.0 and a GFR of 53. Glucose is 113. Calcium is 9.5. Magnesium is 1.9. Liver function is normal. CK-MB fraction 1.7 with a troponin I of less than 0.017. C-reactive protein is 0.3. BNP is 171 minimally elevated. Total protein is 8.0 with an albumin fraction of 3.6. Blood alcohol is 0.00. Portable chest x-ray reveal his heart has a left ventricular configuration with a tortuous thoracic aorta. There is atherosclerotic change within the aorta. Minimal atelectasis or scarring is seen in the left lung base. Lungs otherwise are clear with no acute parenchymal changes. Deformity within the distal left humeral shaft compatible with old fracture which appears healed. I did speak with the family members and they indicate that she can speak and communicate fairly well. They indicate that over the last 2 weeks her speech may have deteriorated a bit but they blame this on new dentures which are uppers and not always keep keeping them in place. She does ask me if she can go home while I was in the room at this time. We will contact the [facility] and [place]. My plan will be to place her back on Abilify 2 mg at bedtime starting tonight and see how things go. Departure - Departure Time of Disposition: 20:36 Disposition: DC/Tfer to Intermediate Care 63 Condition: Fair Clinical Impression: Dementia with behavioral disturbance Qualifiers: Dementia type: Alzheimer's Alzheimer's disease onset: unspecified onset Qualified Code(s): G30.9 - Alzheimer's disease, unspecified; F02.81 - Dementia in other diseases classified elsewhere with behavioral disturbance - Discharge Information *PRESCRIPTION DRUG MONITORING PROGRAM REVIEWED*: Not Applicable *COPY OF PRESCRIPTION DRUG MONITORING REPORT IN PATIENT JIGAR: Not Applicable Prescriptions: ARIPiprazole [Abilify] 2 mg PO DAILY #30 tab Referrals: Tyler Mcneill MD [Primary Care Provider] - Forms: ED Department Discharge Additional Instructions: Evaluation in the emergency room today at the request of [facility] staff due to uncontrolled behaviors today. Agitation with attempts to escape the facility and highly uncooperative with nursing staff and care providers today. Similar problems have been appreciated in the past and were controlled with Abilify 2 mg at bedtime. This medication was discontinued around the middle of June and apparently behavioral problems were able to be controlled by calming and coaxing attitudes of staff. You were found to be highly uncooperative in the emergency room today as well particularly in regards to removing any clothing to allow appropriate examination. Chest x-ray was found to be normal. Urinalysis obtained by catheterization was found to be normal and lab tests all proved to be normal other than mild volume depletion. You did require intramuscular injection of Haldol 2.5 mg and Ativan 2 mg to bring behavior under control and allow mild sedation to occur so that appropriate investigations could be completed. No medical problems were identified to be causing current behavioral issues. It is appreciated that your lower teeth have not been brushed for at least a week to 10 days. It is unclear if attempts to brush her teeth have been attempted. It is my suggestion that you return to Abilify 2 mg at bedtime for behavioral management control. This should be started tonight and medication was provided at the time of your discharge from the ED. Prescription for Abilify 2 mg strength is to be filled tomorrow at [place] [facility] at [facility] which will be open from 1 to 3 PM only due to the holiday tomorrow. Follow-up with your personal care physician is required within the next week. Sepsis Event Note (ED) - Focused Exam Vital Signs: Vital Signs Temp Pulse Resp BP Pulse Ox 08/10/20 18:16 36.7 C 103 H 24 H 143/68 H 90 L - My Orders Last 24 Hours: My Active Orders 08/10/20 18:33 EKG Documentation Completion [RC] STAT Oxygen Therapy [RC] ASDIRECTED 08/10/20 18:45 Sodium Chloride 0.9% [Normal Saline] 1,000 ml IV ASDIRECTED 08/10/20 19:00 SEDIMENTATION RATE AUTO [HEME] Stat - Assessment/Plan Last 24 Hours: My Active Orders 08/10/20 18:33 EKG Documentation Completion [RC] STAT Oxygen Therapy [RC] ASDIRECTED 08/10/20 18:45 Sodium Chloride 0.9% [Normal Saline] 1,000 ml IV ASDIRECTED 05/30/21 19:00 SEDIMENTATION RATE AUTO [HEME] Stat
[2020-08-10] MEDS ORDERED: Haloperidol Lactate 5 MG/ML SDV IM ONE (18:16)
[2020-08-10] MEDS ORDERED: LORazepam 2 MG/ML SDV ONE (18:18)
[2020-08-10] MEDS ORDERED: Haloperidol Lactate 5 MG/ML SDV ONE (18:18)
[2020-08-10] MEDS: LORazepam 2 MG/ML SDV IM ONE ×2 (18:27→18:49)
[2020-08-10] MEDS ORDERED: Sodium Chloride 0.9% 1,000 ML IV SCH (18:45)
[2020-08-10] MEDS ORDERED: LORazepam 2 MG/ML SDV IM ONE (19:14)
--- NOTE | 2020-08-10 19:56 | CR ---
Chest: Portable view of the chest was obtained. Comparison: Prior chest x-ray 10/09/19. Heart has a left ventricular configuration. Tortuous thoracic aorta is seen with atherosclerotic change. Minimal atelectasis or scarring is seen within the left base. Lungs otherwise are clear with no acute parenchymal change. Deformity within the distal left humeral shaft compatible with old fracture which appears healed. Impression: 1. Multiple findings as noted above. 2. Nothing acute is appreciated. Diagnostic code #2
[2020-08-10] MEDS ORDERED: Benztropine 1 MG Tab PO ONE (20:31)
[2020-08-10 21:37] VITALS: BP 115/82; PULSE 76
== END 2020-08-10 21:20 ==
LOC: JD.ED 17:51
DX: G30.9 Alzheimer's disease, unspecified (principal); F02.81 Dementia in other diseases classified elsewhere, unspecified severity, with behavioral disturbance; Z86.73 Personal history of transient ischemic attack (TIA), and cerebral infarction without residual deficits; Z79.899 Other long term (current) drug therapy; R06.82 Tachypnea, not elsewhere classified
CPT/HCPCS: 36415; 71045; 71045-26; 80053; 80307; 81001; 82553; 83735; 83880; 84484; 85025; 85610; 85652; 85730; 86140; 93005; 93010; 96372; 99283; 99285-25; A9270-GY; J1630; J2060; J7030

== ENCOUNTER 2022-01-23 16:35 | Inpatient (IN) | payer MEDICARE, BC, MEDICAID ==
[2022-01-23] MEDS ORDERED: Sodium Chloride 0.9% 10 ML Syringe FLUSH PRN (16:52)
[2022-01-23 17:52] LABS: ESTIMATED GFR 62 mL/min (>60)
[2022-01-23] MEDS ORDERED: Acetaminophen 325 MG Tab PO PRN (20:39)
[2022-01-23] MEDS ORDERED: Albuterol/Ipratropium 3.0-0.5 MG/3 ML Neb Soln NEB PRN (20:39)
[2022-01-23] MEDS ORDERED: Ibuprofen 400 MG Tab PO PRN (20:39)
[2022-01-23] MEDS ORDERED: Ondansetron 4 MG Tab.DIS PO PRN (20:39)
[2022-01-23] MEDS ORDERED: Morphine 2 MG/ML SYRINGE IVPUSH PRN (20:39)
[2022-01-23] MEDS ORDERED: BEVACIZUMAB IV ONE (20:49)
[2022-01-23] MEDS ORDERED: SODIUM CHLORIDE 0.9% IV ONE (20:49)
[2022-01-23] MEDS ORDERED: REMDESIVIR 200 MG in Sodium Chloride 0.9% 250 ML IV ONE (20:52)
[2022-01-23] MEDS ORDERED: levETIRAcetam Soln 500 MG/5 ML Cup PO SCH (21:00)
[2022-01-23] MEDS ORDERED: Mirtazapine 15 MG Tab PO SCH (21:00)
[2022-01-23] MEDS ORDERED: Dexamethasone 4 MG/ML 5 ML MDV IV SCH (21:00)
[2022-01-23] MEDS ORDERED: Dexamethasone 4 MG/ML 5 ML MDV IV ONE (21:52)
[2022-01-23] MEDS ORDERED: Dexamethasone 4 MG/ML SDV PO SCH (22:00)
[2022-01-24] MEDS ORDERED: REMDESIVIR 200 MG in Sodium Chloride 0.9% 250 ML IV ONE ×2
[2022-01-24] MEDS: levETIRAcetam Soln 500 MG/5 ML Cup PO SCH ×3 (00:46→20:46)
[2022-01-24] MEDS: Mirtazapine 15 MG Tab PO SCH ×2 (00:48→20:46)
[2022-01-24] MEDS: Dextrose 5%-0.45% NaCl 1,000 ML IV SCH (00:50)
[2022-01-24] MEDS ORDERED: Dexamethasone 6 MG TABLET PO SCH (07:00)
[2022-01-24] MEDS ORDERED: Iopamidol 755 Mg/ML 100 ML Bottle IVPUSH ONE (07:09)
[2022-01-24] MEDS ORDERED: Sodium Chloride 0.9% 100 ML IV SCH (07:15)
[2022-01-24] MEDS: Pantoprazole 40 MG Vial IVPUSH SCH (08:44)
[2022-01-24] MEDS: Enoxaparin 40 MG/0.4 ML Syringe SUBCUT SCH (08:44)
[2022-01-24] MEDS: Dexamethasone 6 MG TABLET PO SCH (08:46)
[2022-01-24] MEDS ORDERED: Enoxaparin 30 MG/0.3 ML Syringe SUBCUT SCH (09:00)
[2022-01-24] MEDS ORDERED: REMDESIVIR 100 MG in Sodium Chloride 0.9% 250 ML IV SCH (15:15)
[2022-01-24] MEDS ORDERED: Furosemide 20 MG/2 ML VIAL IVPUSH SCH (15:30)
[2022-01-24] MEDS ORDERED: Dexamethasone 4 MG/ML 5 ML MDV IV SCH (15:30)
[2022-01-25] MEDS: REMDESIVIR 100 MG in Sodium Chloride 0.9% 250 ML IV SCH (00:05)
[2022-01-25] MEDS: Dextrose 5%-0.45% NaCl 1,000 ML IV SCH (00:05)
[2022-01-25] MEDS: Levothyroxine 25 MCG Tab PO SCH (07:04)
[2022-01-25] MEDS ORDERED: Sennosides 8.6 MG Tab PO PRN (08:38)
[2022-01-25] MEDS ORDERED: Docusate Sodium 100 MG Cap PO PRN (08:38)
[2022-01-25] MEDS: Dexamethasone 6 MG TABLET PO SCH (08:41)
[2022-01-25] MEDS: levETIRAcetam Soln 500 MG/5 ML Cup PO SCH ×2 (08:42→20:48)
[2022-01-25] MEDS: Pantoprazole 40 MG Vial IVPUSH SCH (08:43)
[2022-01-25] MEDS: Pantoprazole 40 MG Tab.CR PO SCH (08:49)
[2022-01-25] MEDS: Sertraline 50 MG Tab PO SCH (08:52)
[2022-01-25] MEDS: Enoxaparin 40 MG/0.4 ML Syringe SUBCUT SCH (13:57)
[2022-01-25] MEDS: Mirtazapine 15 MG Tab PO SCH (20:48)
[2022-01-26] MEDS: REMDESIVIR 100 MG in Sodium Chloride 0.9% 250 ML IV SCH (00:30)
[2022-01-26] MEDS: Levothyroxine 25 MCG Tab PO SCH (06:36)
[2022-01-26] MEDS: levETIRAcetam Soln 500 MG/5 ML Cup PO SCH ×2 (08:40→20:41)
[2022-01-26] MEDS: Sertraline 50 MG Tab PO SCH (08:41)
[2022-01-26] MEDS: Pantoprazole 40 MG Tab.CR PO SCH (08:41)
[2022-01-26] MEDS: Dexamethasone 6 MG TABLET PO SCH (08:42)
[2022-01-26] MEDS: Enoxaparin 40 MG/0.4 ML Syringe SUBCUT SCH (08:42)
[2022-01-26] MEDS: Mirtazapine 15 MG Tab PO SCH (20:41)
[2022-01-27] MEDS: REMDESIVIR 100 MG in Sodium Chloride 0.9% 250 ML IV SCH (00:13)
[2022-01-27] MEDS: Levothyroxine 25 MCG Tab PO SCH (06:45)
[2022-01-27] MEDS: levETIRAcetam Soln 500 MG/5 ML Cup PO SCH ×2 (09:36→20:36)
[2022-01-27] MEDS: Potassium Chloride 10 MEQ in Premix Bag 1 BAG IV SCH ×2 (09:36→10:44)
[2022-01-27] MEDS: Dexamethasone 6 MG TABLET PO SCH (09:38)
[2022-01-27] MEDS: Enoxaparin 40 MG/0.4 ML Syringe SUBCUT SCH (09:38)
[2022-01-27] MEDS: Cholecalciferol (Vitamin D3) 25 MCG Tab PO SCH (09:38)
[2022-01-27] MEDS: Sertraline 50 MG Tab PO SCH (09:38)
[2022-01-27] MEDS: Ferrous Sulfate 324 MG Tab.EC PO SCH (09:39)
[2022-01-27] MEDS: Pantoprazole 40 MG Tab.CR PO SCH (09:39)
[2022-01-27] MEDS ORDERED: Sodium Chloride 0.9% 500 ML ONE (10:01)
[2022-01-27] MEDS ORDERED: Potassium Chloride 20 MEQ Tab.ER PO ONE (11:00)
[2022-01-27] MEDS: Mirtazapine 15 MG Tab PO SCH (20:36)
[2022-01-28] MEDS: REMDESIVIR 100 MG in Sodium Chloride 0.9% 250 ML IV SCH (00:17)
[2022-01-28] MEDS: Levothyroxine 25 MCG Tab PO SCH (06:56)
[2022-01-28] MEDS: Sertraline 50 MG Tab PO SCH (08:42)
[2022-01-28] MEDS: Pantoprazole 40 MG Tab.CR PO SCH (08:42)
[2022-01-28] MEDS: Cholecalciferol (Vitamin D3) 25 MCG Tab PO SCH (08:42)
[2022-01-28] MEDS: Ferrous Sulfate 324 MG Tab.EC PO SCH (08:42)
[2022-01-28] MEDS: Enoxaparin 40 MG/0.4 ML Syringe SUBCUT SCH (08:44)
[2022-01-28] MEDS: levETIRAcetam Soln 500 MG/5 ML Cup PO SCH (08:44)
[2022-01-28] MEDS: Dexamethasone 6 MG TABLET PO SCH (12:00)
[2022-01-28 12:13] VITALS: BP 133/98; PULSE 52
== END 2022-01-28 13:18 | DRG 177 ==
LOC: JD.ED 16:35 → JD.MS 20:39
PROVIDERS: ADMIT Pediatrics; ATTEND Pediatrics
PROC: XW033E5 Introduction of Remdesivir Anti-infective into Peripheral Vein, Percutaneous Approach, New Technology Group 5 (ICD-10-PCS; principal; 2022-01-23)
PROC: XW0DXM6 Introduction of Baricitinib into Mouth and Pharynx, External Approach, New Technology Group 6 (ICD-10-PCS; 2022-01-23)
PROC: 3E0DX3Z Introduction of Anti-inflammatory into Mouth and Pharynx, External Approach (ICD-10-PCS; 2022-01-23)
PROC: 8E0ZXY6 Isolation (ICD-10-PCS; 2022-01-23)
DX: U07.1 COVID-19 (principal); R09.02 Hypoxemia; J12.82 Pneumonia due to coronavirus disease 2019; I69.351 Hemiplegia and hemiparesis following cerebral infarction affecting right dominant side; I10 Essential (primary) hypertension; Z66 Do not resuscitate; D69.6 Thrombocytopenia, unspecified; I25.10 Atherosclerotic heart disease of native coronary artery without angina pectoris; F03.90 Unspecified dementia, unspecified severity, without behavioral disturbance, psychotic disturbance, mood disturbance, and anxiety; E78.5 Hyperlipidemia, unspecified; R13.10 Dysphagia, unspecified; E03.9 Hypothyroidism, unspecified; R79.1 Abnormal coagulation profile; M19.90 Unspecified osteoarthritis, unspecified site; G47.00 Insomnia, unspecified; F32.A Depression, unspecified; H54.7 Unspecified visual loss; D64.9 Anemia, unspecified; Z86.711 Personal history of pulmonary embolism; Z79.899 Other long term (current) drug therapy; Z79.890 Hormone replacement therapy; Z86.16 Personal history of COVID-19
CPT/HCPCS: 36415; 71045; 71275; 80053; 83735; 85025; 85379; 86140; 99285; J3490; 82947; 87641; 94667; 94668; 94761; 97162-GP; 97166-GO; A9270-GY; C9113; J1100; J1650; J1940; J3480; J7042; J7050; J8540; Q9967

== ENCOUNTER 2022-04-21 08:23 | Emergency (ER) | payer MEDICARE, BC, MEDICAID ==
[2022-04-21 09:55] LABS: ESTIMATED GFR 71 mL/min (>60)
[2022-04-21] MEDS ORDERED: Sodium Chloride 0.9% 10 ML Syringe FLUSH PRN (10:48)
[2022-04-21] MEDS ORDERED: Iopamidol 612 MG/ML 100 ML Bottle IVPUSH ONE (10:48)
[2022-04-21] MEDS ORDERED: cefTRIAXone 2 GM in Sodium Chloride 0.9% 100 ML IV ONE (11:45)
[2022-04-21] MEDS: Lidocaine 2% 11 ML Jelly Filled Syringe MUCMEM ONE ×2 (12:30→13:36)
[2022-04-21] MEDS ORDERED: Sodium Chloride 0.9% 500 ML IV ONE (14:08)
[2022-04-21 18:41] VITALS: BP 138/63; PULSE 85
== END 2022-04-21 15:25 | disposition home or self-care (01) ==
LOC: JD.ED 08:23
DX: M48.56XA Collapsed vertebra, not elsewhere classified, lumbar region, initial encounter for fracture (principal); K59.00 Constipation, unspecified; N39.0 Urinary tract infection, site not specified; I25.10 Atherosclerotic heart disease of native coronary artery without angina pectoris; I10 Essential (primary) hypertension; J44.9 Chronic obstructive pulmonary disease, unspecified; K21.9 Gastro-esophageal reflux disease without esophagitis; E03.9 Hypothyroidism, unspecified; D64.9 Anemia, unspecified; Z87.891 Personal history of nicotine dependence; Z79.899 Other long term (current) drug therapy
CPT/HCPCS: 36415; 51701; 71045; 74177; 80053; 81001; 83690; 83880; 84484; 85025; 85610; 87086; 96365; 99284; A9270; J0696; J3490; J7030; Q9967; 51702

== ENCOUNTER 2023-06-04 14:36 | Inpatient (IN) | payer MEDICARE, BC, MEDICAID ==
[2023-06-04] MEDS: Dextrose 5%-0.9% NaCl 1,000 ML IV SCH (15:14)
[2023-06-04] MEDS: Acetaminophen 325 MG Tab PO ONE (15:14)
[2023-06-04 15:22] LABS: BASOPHILS PERCENT AUTO 0.2 % (0.0-1.0); EOSINOPHILS ABSOLUTE AUTO 0.3 K/mm3 (0.0-0.4); EOSINOPHILS PERCENT AUTO 2.5 % (0.0-6.0); HEMATOCRIT 37.4 % (37.0-47.0); HEMOGLOBIN 11.9 gm/dl (12.0-16.0); IMMATURE GRAN ABSOLUTE AUTO 0.03 K/mm3 (0.00-0.05); IMMATURE GRAN PERCENT AUTO 0.3 % (0.0-0.4); LYMPHOCYTES ABSOLUTE AUTO 3.8 K/mm3 (1.0-4.8); LYMPHOCYTES PERCENT AUTO 37.2 % (24.0-44.0); MEAN CORPUSCULAR HEMOGLOBIN 32.1 pg (28.0-32.0); MEAN CORPUSCULAR HGB CONC 31.8 g/dl (32.0-36.0); MEAN CORPUSCULAR VOLUME 100.8 fl (83.0-99.0); MEAN PLATELET VOLUME 14.4 fl (9.4-12.3); MONOCYTES ABSOLUTE AUTO 0.9 K/mm3 (0.0-0.8); MONOCYTES PERCENT AUTO 8.4 % (0.0-8.0); NEUTROPHILS ABSOLUTE AUTO 5.2 K/mm3 (1.8-7.7); NEUTROPHILS PERCENT AUTO 51.4 % (41.0-71.0); PLATELET COUNT,PLT 151 K/mm3 (150-400); RED BLOOD CELL COUNT 3.71 M/mm3 (4.10-5.30); WHITE BLOOD CELL COUNT,WBC 10.17 K/mm3 (3.9-11.3)
[2023-06-04 15:23] LABS: APPEARANCE,URINE SLT CLOUDY (Clear); BILIRUBIN,URINE NEGATIVE (Negative); COLOR,URINE YELLOW (Yellow); GLUCOSE,URINE NEGATIVE (Negative); KETONES,URINE TRACE (Negative); LEUKOCYTE ESTERASE,URINE TRACE (Negative); NITRITE,URINE POSITIVE (Negative); OCCULT BLOOD,URINE 2+ (Negative); PH,URINE 5.5 (5.0-8.0); PROTEIN,URINE 3+ (Negative); UROBILINOGEN,URINE 0.2 (0.2-1.0)
[2023-06-04 15:44] LABS: PCO2 ARTERIAL 47.5 mmHg (35.0-45.0)
[2023-06-04 15:45] LABS: BASE EXCESS ARTERIAL -0.6 (-2-2.0); BICARBONATE,ARTERIAL 24.9 meq/L (22.0-26.0); O2 SATURATION ARTERIAL 45.9 % (96.0-97.0)
[2023-06-04 15:48] LABS: INR 0.99; PROTHROMBIN TIME 10.6 SECONDS (9.7-12.0)
[2023-06-04 15:49] LABS: PTT,PARTIAL THROMBOPLSTIN TIME 21.1 SECONDS (21.7-31.4)
[2023-06-04 15:58] LABS: BACTERIA,URINE MODERATE /hpf (FEW); MUCUS,URINE FEW /hpf (FEW); RBC,URINE 0-5 /hpf (0-5)
[2023-06-04] MEDS: Sodium Chloride 0.9% 1,000 ML IV SCH ×2 (15:58→18:38)
[2023-06-04 16:00] LABS: A/G RATIO 0.7 (1-2); ALANINE AMINOTRANSFERASE,ALT 11 U/L (14-59); ALBUMIN 3.3 g/dl (3.4-5.0); ALKALINE PHOSPHATASE 70 U/L (46-116); ANION GAP 15.6 (5-15); ASPARTATE AMNIOTRANSFERASE,AST 13 U/L (15-37); BILIRUBIN TOTAL 0.3 mg/dL (0.2-1.0); BLOOD UREA NITROGEN,BUN 21 mg/dL (7-18); C-REACTIVE PROTEIN 2.19 mg/dL (<0.30); CALCIUM 8.7 mg/dL (8.5-10.1); CARBON DIOXIDE,CO2 25 mEq/L (21-32); CHLORIDE,CL 107 mEq/L (98-107); ESTIMATED GFR 54 mL/min (>60); GLUCOSE RANDOM 135 mg/dL (70-99); POTASSIUM,K 3.6 mEq/L (3.5-5.1); PROTEIN TOTAL,TP 7.8 g/dl (6.4-8.2); SODIUM,NA 144 mEq/L (136-145); TROPONIN I HIGH SENSITIVITY 10 pg/mL (<=51)
[2023-06-04 16:15] LABS: LACTIC ACID 2.7 mmol/L (0.4-2.0)
[2023-06-04 16:18] LABS: CORONAVIRUS COVID-19 NAA NEGATIVE (NEGATIVE); INFLUENZA A NAA NEGATIVE (NEGATIVE); RESPIRATORY SYNCYTIAL VIR NAA NEGATIVE (NEGATIVE)
[2023-06-04] MEDS ORDERED: Polyethylene Glycol 3350 Powder 17 GM Packet PO PRN (16:32)
[2023-06-04] MEDS ORDERED: Docusate Sodium 100 MG Cap PO PRN (16:32)
[2023-06-04] MEDS ORDERED: Acetaminophen 650 MG Supp RECTAL PRN (16:32)
[2023-06-04] MEDS ORDERED: Acetaminophen 325 MG Tab PO PRN (16:32)
[2023-06-04] MEDS ORDERED: Ondansetron 4 MG/2 ML SDV IV PRN (16:32)
[2023-06-04] MEDS ORDERED: Ondansetron 4 MG Tab.DIS PO PRN (16:32)
[2023-06-04] MEDS: cefTRIAXone 2 GM in Sodium Chloride 0.9% 100 ML IV ONE (16:43)
[2023-06-04] MEDS ORDERED: cefTRIAXone 2 GM in Sodium Chloride 0.9% 100 ML IV SCH (16:45)
[2023-06-04] MEDS ORDERED: Heparin Sodium 5,000 Units/ML Vial SUBCUT SCH (16:45)
[2023-06-04] MEDS ORDERED: Lactated Ringers 1,000 ML IV SCH (16:45)
[2023-06-04] MEDS ORDERED: Albuterol 0.083% 2.5 MG/3 ML Neb Soln NEB PRN (17:00)
[2023-06-04] MEDS: Heparin Sodium 5,000 Units/ML Vial SUBCUT SCH (17:52)
[2023-06-04] MEDS: Formoterol/Mometasone 100-5 MCG 8.8 GM Inhaler IH SCH (20:39)
[2023-06-04] MEDS ORDERED: Formoterol/Mometasone 100-5 MCG 8.8 GM Inhaler IH SCH (21:00)
[2023-06-05 05:27] LABS: BASOPHILS PERCENT AUTO 0.3 % (0.0-1.0); EOSINOPHILS ABSOLUTE AUTO 0.3 K/mm3 (0.0-0.4); EOSINOPHILS PERCENT AUTO 3.4 % (0.0-6.0); HEMATOCRIT 29.8 % (37.0-47.0); IMMATURE GRAN ABSOLUTE AUTO 0.04 K/mm3 (0.00-0.05); IMMATURE GRAN PERCENT AUTO 0.5 % (0.0-0.4); LYMPHOCYTES ABSOLUTE AUTO 2.8 K/mm3 (1.0-4.8); LYMPHOCYTES PERCENT AUTO 36.3 % (24.0-44.0); MEAN CORPUSCULAR HEMOGLOBIN 31.5 pg (28.0-32.0); MEAN CORPUSCULAR HGB CONC 31.9 g/dl (32.0-36.0); MEAN CORPUSCULAR VOLUME 98.7 fl (83.0-99.0); MEAN PLATELET VOLUME 13.6 fl (9.4-12.3); MONOCYTES ABSOLUTE AUTO 0.6 K/mm3 (0.0-0.8); NEUTROPHILS PERCENT AUTO 51.5 % (41.0-71.0); PLATELET COUNT,PLT 124 K/mm3 (150-400); RED BLOOD CELL COUNT 3.02 M/mm3 (4.10-5.30); WHITE BLOOD CELL COUNT,WBC 7.76 K/mm3 (3.9-11.3)
[2023-06-05 05:29] LABS: ANION GAP 12.5 (5-15); BUN/CREATININE RATIO 18.6 (14-18); CALCIUM 8.2 mg/dL (8.5-10.1); CREATININE 0.7 mg/dL (0.55-1.02); EST CRCL DRUG DOSING (CG) 43.64 mL/min; HEMOGLOBIN 9.5 gm/dl (12.0-16.0); POTASSIUM,K 3.5 mEq/L (3.5-5.1)
[2023-06-05] MEDS ORDERED: Magnesium Hydroxide 400 MG/5 ML Susp 30 ML Cup PO PRN (07:51)
[2023-06-05] MEDS ORDERED: Acetaminophen/HYDROcodone 325-5 MG Tab PO PRN (07:51)
[2023-06-05] MEDS ORDERED: Albuterol 0.083% 2.5 MG/3 ML Neb Soln INH PRN (07:51)
[2023-06-05] MEDS ORDERED: Bisacodyl 10 MG Supp RECTAL PRN (07:51)
[2023-06-05] MEDS ORDERED: Sennosides 8.6 MG Tab PO PRN (07:51)
[2023-06-05] MEDS: Megestrol Susp 40 MG/ML 10 ML UD Cup PO SCH (08:13)
[2023-06-05] MEDS: Sertraline 50 MG Tab PO SCH (08:13)
[2023-06-05] MEDS: Potassium Chloride 10 MEQ Tab.ER PO SCH (08:13)
[2023-06-05] MEDS: Sennosides/Docusate Sodium 50-8.6 MG Tab PO SCH (08:13)
[2023-06-05] MEDS: levETIRAcetam 500 MG Tab PO SCH (08:14)
[2023-06-05] MEDS: Pantoprazole 40 MG Tab.CR PO SCH (08:16)
[2023-06-05] MEDS: cefTRIAXone 2 GM in Sodium Chloride 0.9% 100 ML IV SCH (16:15)
[2023-06-05] MEDS: Mirtazapine 15 MG Tab PO SCH (21:53)
[2023-06-06] MEDS: Levothyroxine 25 MCG Tab PO SCH (06:25)
[2023-06-06] MEDS ORDERED: Acetaminophen/HYDROcodone 325-5 MG Tab PO PRN (08:04)
[2023-06-06] MEDS: Enoxaparin 30 MG/0.3 ML Syringe SUBCUT SCH (08:36)
[2023-06-07] MEDS: cefTRIAXone 2 GM in Sodium Chloride 0.9% 100 ML IV SCH (10:20)
[2023-06-07 12:13] VITALS: BP 131/93; PULSE 103
== END 2023-06-07 13:10 | DRG 872 ==
LOC: JD.ED 14:36 → JD.MS 16:32
PROVIDERS: ADMIT Hospitalist; ATTEND Internal Medicine
PROC: 4A033R1 Measurement of Arterial Saturation, Peripheral, Percutaneous Approach (ICD-10-PCS; principal; 2023-06-04)
PROC: 3E03329 Introduction of Other Anti-infective into Peripheral Vein, Percutaneous Approach (ICD-10-PCS; 2023-06-04)
DX: J44.9 Chronic obstructive pulmonary disease, unspecified (principal); A41.51 Sepsis due to Escherichia coli [E. coli]; R50.9 Fever, unspecified; F03.93 Unspecified dementia, unspecified severity, with mood disturbance; N39.0 Urinary tract infection, site not specified; A41.89 Other specified sepsis; J44.89 Other specified chronic obstructive pulmonary disease; H91.90 Unspecified hearing loss, unspecified ear; I25.10 Atherosclerotic heart disease of native coronary artery without angina pectoris; K59.09 Other constipation; K21.9 Gastro-esophageal reflux disease without esophagitis; F20.9 Schizophrenia, unspecified; E03.9 Hypothyroidism, unspecified; Z66 Do not resuscitate; I50.9 Heart failure, unspecified; I11.0 Hypertensive heart disease with heart failure; E78.5 Hyperlipidemia, unspecified; R13.10 Dysphagia, unspecified; Z79.899 Other long term (current) drug therapy; Z86.711 Personal history of pulmonary embolism; Z87.81 Personal history of (healed) traumatic fracture; Z86.73 Personal history of transient ischemic attack (TIA), and cerebral infarction without residual deficits; Z86.16 Personal history of COVID-19; Z79.51 Long term (current) use of inhaled steroids; Z99.81 Dependence on supplemental oxygen; Z87.891 Personal history of nicotine dependence
CPT/HCPCS: 0241U; 36415; 36600; 51702; 71045; 80048; 80053; 81001; 82803; 83605; 83735; 83880; 84484; 85025; 85610; 85730; 86140; 87040; 87086; 87088; 87154; 87186; 87641; 92610; 93005; 94640; 94760; 94761; 96360; 96361; 99285; 93010; A9270-GY; J0696; J1644; J1650; J3490; J7030; J7042

== ENCOUNTER 2023-07-22 14:00 | Emergency (ER) | payer MEDICARE, BC, MEDICAID ==
[2023-07-22 23:41] VITALS: BP 143/55; PULSE 77
== END 2023-07-22 20:45 | disposition home or self-care (01) ==
LOC: JD.ED 14:00
DX: R60.0 Localized edema (principal); J41.0 Simple chronic bronchitis; F03.90 Unspecified dementia, unspecified severity, without behavioral disturbance, psychotic disturbance, mood disturbance, and anxiety; F41.9 Anxiety disorder, unspecified; F39 Unspecified mood [affective] disorder; F23 Brief psychotic disorder; Z99.81 Dependence on supplemental oxygen; I10 Essential (primary) hypertension; I25.10 Atherosclerotic heart disease of native coronary artery without angina pectoris; K21.9 Gastro-esophageal reflux disease without esophagitis; J45.909 Unspecified asthma, uncomplicated; E03.9 Hypothyroidism, unspecified; Z86.16 Personal history of COVID-19; Z79.890 Hormone replacement therapy; Z79.899 Other long term (current) drug therapy
CPT/HCPCS: 71045; 71045-26; 99283; 99284